=== PATIENT | male | born 1945 | race Caucasian/White ===

== ENCOUNTER 2022-01-21 14:20 | Outpatient (CLI) | payer MEDICARE, SELFPAY ==
[2022-01-21 15:03] LABS: Basophils Absolute Auto 0.1 K/mm3 (0.0-0.1); Basophils Percent Auto 0.8 % (0.2-1.2); Eosinophils Absolute Auto 0.4 K/mm3 (0-0.3); Eosinophils Percent Auto 4.6 % (0-4.4); Hematocrit 43.8 % (42.0-52.0); Hemoglobin 13.8 g/dL (14.0-18.0); Immature Granulocyte Absolute 0.03 K/mm3 (0.00-0.031); Immature Granulocyte Percent A 0.4 % (0-0.5); Lymphocytes Absolute Auto 2.27 K/mm3 (0.9-3.2); Mean Corpuscular HGB Conc 31.5 g/dl (32-36); Mean Corpuscular Hemoglobin 28.7 pg (26-34); Mean Corpuscular Volume 91.1 fl (80-100); Mean Platelet Volume 9.6 fl (7.4-10.4); Monocytes Absolute Auto 0.6 K/mm3 (0.1-0.6); Monocytes Percent Auto 7.7 % (2.6-8.5); Neutrophils Absolute Auto 4.5 K/mm3 (1.3-6.7); Neutrophils Percent Auto 57.5 % (45.5-73.1); Platelet Count Result 227 k/mm3 (150-375); Red Blood Count 4.81 M/mm3 (4.6-6.20); Red Cell Distribution Width 13.8 % (11.5-14.5); White Blood Count 7.8 K/mm3 (4.5-10.0)
[2022-01-21 15:08] LABS: INR 1.1; Prothrombin Time 13.6 Seconds (11.1-14.7)
[2022-01-21 15:09] LABS: Partial Thromboplastin Time 29.1 SECONDS (22.3-36.8)
== END 2022-01-21 14:21 | disposition home or self-care (01) ==
PROVIDERS: Visit Provider Surgery
DX: C34.90 Malignant neoplasm of unspecified part of unspecified bronchus or lung (principal); Z01.818 Encounter for other preprocedural examination
CPT/HCPCS: 36415; 85025; 85610; 85730

== ENCOUNTER 2022-01-23 02:07 | Day surgery (SDC) | payer MEDICARE, SELFPAY ==
--- NOTE | 2022-01-20 11:03 | PC.NURSE ---
Report to the Outpatient Waiting Room, entrance under the green pavilion located off [facility], at time 0830 on date __01/23/22 . OR Time: __1030 . - You and your visitor will be asked a series of questions to screen for COVID 19 for your protection. - Only one visitor is allowed at this time. - The patient visitor is requested to leave or wait in car when not with patient. - A mask is required within the hospital. Patients may have clear liquids (water, carbonated beverages, clear teas, apple juice) until 3 hours prior to surgery with a maximum of 20 ounces. - No food from midnight until time of surgery - Infants may have breast milk until 4 hours before surgery, infant formula 6 hours prior to surgery. - Children will be allowed to drink immediately following surgery. If applicable, please bring a bottle or sippy cup to assist with drinking. Juice, water, soda, and popsicles are readily available. For infants on formula, please bring formula the day of surgery. Pacifiers are allowed. Take the following medications with a SIP of water the morning of surgery: _METOPROLOL Medications to discontinue per physician NONE Date to take last dose Please no make-up, nail serbian, hairspray, perfume, deodorant, or body powder the day of surgery. No jewelry (including any body piercings) or valuables the day of surgery, leave them at home. Please take a shower or bath the night before, or the morning of, surgery with an antibacterial soap. Wear comfortable, loose fitting clothing. Children are encouraged to wear pajamas. - Jewelry must be removed prior to entering the operating room. Rings and piercings that are not removed may be cut off. - The hospital will not accept responsibility for valuables. - Please leave all valuables, including medications, at home the day of surgery. If you are going home after surgery, a licensed [employer] flatbed driver must drive you home. - NO public transportation without another adult. - We recommend that an adult stay with you for 24 hours following discharge. - We also recommend that you do not drive, make important decision, drink alcoholic beverages, or take any drugs that were not prescribed by your health care provider for at least 24 hours after your discharge time. For Pediatric surgeries, we recommend two adults accompany the child home (only one inside the building at this time). Follow any additional instructions given to you from your surgeon. If you or anyone in your household have experienced Covid symptoms in the past week, please notify your surgeon or the nurse liaison at the phone number below for possible testing. Telephone instructions given to PT'S DAUGHTER MEG and asked if any additional questions and then verbalized understanding. Patient advised to call surgeon office or pre surgery nurse liaison [phone] if any additional questions.
[2022-01-20 11:10] VITALS: BMI 23.4
--- NOTE | ~2022-01-23 | XR_ITS ---
EXAMINATION: XR fl guide central line place DATE: 01/23/2022 10:06 INDICATION: Port placement. TECHNIQUE: A single intraoperative fluoroscopic view of the chest was obtained. I was not present. Fl uoroscopy exposure time was 28 seconds. COMPARISON: Chest single view 01/23/2022 FINDINGS: The port tip is in the superior vena cava. Mediastinal wires are noted. IMPRESSION: 1. Port tip in the superior vena cava. Reviewed, dictated and finalized at location A.
--- NOTE | ~2022-01-23 | XR_ITS ---
EXAMINATION: XR chest port-a-cath/central DATE: 01/23/2022 10:22 INDICATION: Port placement. TECHNIQUE: A single frontal view of the chest was obtained. COMPARISON: None. FINDINGS: There is volume loss in right hemithorax. There are surgical changes in right lung with sta ple lines, surgical clips, and mild areas of scarring. No pleural effusion or pneumothorax. The heart size is normal. There is a left subclavian port with tip in superior vena cava. There is mild displa cement of the catheter between the clavicle and first rib. Median sternotomy wires are noted. IMPRESSION: 1. Port tip in superior vena cava. 2. Surgical changes and mild scarring at right lung. Reviewed, dictated and finalized at location A.
--- NOTE | 2022-01-23 08:53 | PM.IMHP ---
H&P: HPI History of Present Illness Date/Time: 01/23/22 08:53 Chief Complaint: R lung cancer Narrative: Pt is a 76 y/o M c recurrent R lung cancer. Pt had wedge resection x [address] in [address] Pt now c evidence of recurrence including mediastinal LN. Pt is going to undergo chemoradiation. Pt here for VAD placement for access. Pt denies any previous central venous catheterization. Review of Systems Review of Systems: All systems reviewed & are unremarkable except as noted in HPI and below [facility] Social History Social History Smoking packs per day: 0.5 Smoking cigarettes per day: 10.0 Years smoked: 40 Smoking pack-years: 20.00 Smoking status: Former smoker Tobacco type: cigarettes Smoking end date: 07/13/20 Alcohol intake: current Drinks per week: 1 Living arrangements: with family Spiritual care concerns: No Meds Home Medications and Allergies Home Medications Medication Instructions Recorded Confirmed Type aspirin 81 mg tablet,delayed 81 mg PO DAILY 01/20/22 01/20/22 History release (Adult Low Dose Aspirin) atorvastatin 40 mg tablet 1 tablet PO DAILY 01/20/22 01/20/22 History lisinopril 5 mg tablet 5 mg PO DAILY 01/20/22 01/20/22 History metoprolol succinate 25 mg 25 mg PO DAILY 01/20/22 01/20/22 History tablet,extended release 24 hr tamsulosin 0.4 mg capsule 0.4 mg PO DAILY 01/20/22 01/20/22 History Allergies Allergy/AdvReac Type Severity Reaction Status Date / Time No Known Allergies Allergy Verified 01/20/22 10:51 Exam Const: General: cooperative, healthy appearing and comfortable Chest: Chest palpation & inspection: normal inspection of the chest Resp: Auscultation: diminished lung sounds Cardio: Rate: regular rate Rhythm: regular rhythm GI: Inspection: normal to inspection Assessment and Plan Assessment and plan (1) Cancer of right lung: Code(s): C34.91 - Malignant neoplasm of unspecified part of right bronchus or lung Status: Acute Assessment and Plan: will place VAD for chemo access
--- NOTE | 2022-01-23 08:56 | WPDHPUPDATE1 ---
History and Physical Update Update Date/Time: 01/23/22 08:56 History and Physical has been reviewed, including an updated exam of the patient. There are NO changes in the patient's condition. Risks, benefits, and alternatives have been discussed and questions answered. Patient agrees to proceed with procedure.
[2022-01-23] MEDS: LACTATED RINGERS 1,000 ML 30 ML IV CONT (09:15)
[2022-01-23] MEDS: KETOROLAC 15 MG/ML VIAL (*BKC) IV PUSH (09:15)
--- NOTE | 2022-01-23 09:15 | P.PNAN_ITS ---
Anes - Initial Pre Proc Eval Procedure: Operation Date: 01/23/22 10:30 Proposed Procedures p Insertion Unique Cath - Niru Freeman MD Date/Time: 01/23/22 09:15 Surgeon: Niru Freeman MD Pre Op Diagnosis: Non Small Cell Ca of Right Lung Patient Data Age: 76 Gender: M Height: 1.73 m Weight: 69.85 kg Allergies Allergy/AdvReac Type Severity Reaction Status Date / Time No Known Allergies Allergy Verified 01/20/22 10:51 Home Medications Medication Instructions Recorded Confirmed Type aspirin 81 mg tablet,delayed 81 mg PO DAILY 01/20/22 01/20/22 History release (Adult Low Dose Aspirin) atorvastatin 40 mg tablet 1 tablet PO DAILY 01/20/22 01/20/22 History lisinopril 5 mg tablet 5 mg PO DAILY 01/20/22 01/20/22 History metoprolol succinate 25 mg 25 mg PO DAILY 01/20/22 01/20/22 History tablet,extended release 24 hr tamsulosin 0.4 mg capsule 0.4 mg PO DAILY 01/20/22 01/20/22 History Patient hx anesthesia problems: none Family hx anesthesia problems: none Results Review: All pre-operative results and documents have been reviewed as part of the pre- operative evaluation. [facility] Past Medical History Medical History CAD (coronary artery disease) Cancer of right lung Dementia Hyperlipidemia Hypertension Surgical History Surgical History Hx of CABG Social History Social History Smoking packs per day: 0.5 Smoking cigarettes per day: 10.0 Years smoked: 40 Smoking pack-years: 20.00 Smoking status: Former smoker Tobacco type: cigarettes Smoking end date: 07/13/20 Alcohol intake: current Drinks per week: 1 Living arrangements: with family Spiritual care concerns: No Anes - Eval Final PreProcedure Day of Procedure 01/23/22 09:15 Patient weight: normal Heart: regular rate and rhythm Lungs: decreased breath sounds Airway: Mallampati scale class III Neurological: other (alert) Last oral intake: >/= 8 hours ASA classification: IV Emergent: no Anesthetic plan: proceed Anesthesia type and monitoring: general GIVS and standard monitoring Results Review: All pre-operative results and documents have been reviewed as part of the pre- operative evaluation. Informed Consent: The patient's anesthetic plan and its attendant risks and benefits were discusse d with the patient/family/POA. Questions were solicited and answers provided to the satisfaction of the patient/family/POA.
[2022-01-23] MEDS: ceFAZolin 2 GM/D5W 50 ML 2 GM/50 ML BAG IVPB (09:37)
[2022-01-23] MEDS: BUPIVACAINE/EPINEPHRINE 0.25% 50 ML VIAL 10 ML INFILTRATE (09:49)
[2022-01-23 09:53] VITALS: BP 146/60; PULSE 74; RESP 14; TEMP 36.9; O2SAT 98
[2022-01-23] MEDS: HEPARIN SODIUM 5,000 UNITS/ML VIAL 5000 UNITS IRRIGATION (10:00)
[2022-01-23] MEDS: HEPARIN SODIUM, PORCINE 10,000 UNITS/10 ML VIAL 4000 UNITS IV PUSH (10:00)
--- NOTE | 2022-01-23 10:05 | W.PM.PROC2 ---
Procedure Note - Detailed Date of Procedure 01/23/22 Pre-op Diagnosis Non Small Cell Ca of Right Lung Post-op Diagnosis Same Procedure Performed placement of left subclavian venous access device under fluoroscopic guidance Surgeon Niru Freeman MD Anesthesia MAC and Local Indications 74 y/o F c recurrent, metastatic right lung cancer requiring chemotherapy Findings first stick L SCV Description of Procedure Patient was brought into the operating room and placed in the supine position. After adequate induction of mac anesthesia, the patient was prepped and draped in normal sterile fashion. Time-out was then done to verify the patient's identity, as well as the procedure being performed. I began by making a small incision in the left chest, I then gained access into the left subclavian vein with an 18 gauge needle. I then placed the guidewire into the vein and confirmed placement via fluoroscopic guidance. I then locally anesthetized the area in the left chest. I then enlarged the incision around the guidewire including making a subcutaneous pocket inferiorly to allow placement of the port itself. I then placed a dilating sheath over the guidewire into the left subclavian vein via sterile Seldinger technique. This was once again done and confirmed via fluoroscopic guidance. I then removed the dilator and the guidewire, now just leaving the sheath in the vein. I then fed the previously flushed catheter into the left subclavian vein under fluoroscopic guidance. At approximately 20 cm, the catheter was noted to be near the atrial caval junction. I then peeled away the sheath, now just leaving the catheter in the vein. I then was able to easily draw and flush from the catheter. The catheter was cut to fit and attached to the port itself. The port was placed into the previously made subcutaneous pocket and sutured in with 0 Ethibond suture. Final fluoroscopic view showed the termination of the catheter at the atrial caval junction with a nice smooth curvature back to the port itself. I was able to gain access to the port with a Crowder needle and was able to easily draw and flush from the port. I then flushed 4 cc of a final heparin flush into the port. The incision was closed with 3 0 Vicryl suture in the subcutaneous tissue and the skin was closed with 4 O Monocryl subcuticular suture. Dermabond was then placed on wound. The patient tolerated the procedure well and will be sent to the recovery room in stable condition. Implants L SCV VAD Estimated Blood Loss 5 Drains No Packing No Pathology None sent Complications No immediate complications Condition Stable Disposition PACU [facility] Billing Surgery - Charge Forward: Surgery Billing
[2022-01-23 10:09] VITALS: BP 111/80; PULSE 71; RESP 16; O2SAT 100
[2022-01-23 10:39] VITALS: BP 130/57; PULSE 68; RESP 18; O2SAT 99
[2022-01-23 11:09] VITALS: BP 127/76; PULSE 69; RESP 18
[2022-01-23 11:39] VITALS: BP 146/57; PULSE 67; RESP 18
== END 2022-01-23 11:47 | disposition home or self-care (01) ==
PROVIDERS: Visit Provider Surgery
PROC: (CPT 36561; principal; 2022-01-23 10:30)
DX: C34.91 Malignant neoplasm of unspecified part of right bronchus or lung (principal); Z87.891 Personal history of nicotine dependence; Z79.82 Long term (current) use of aspirin; C77.1 Secondary and unspecified malignant neoplasm of intrathoracic lymph nodes
CPT/HCPCS: 36561; 36415; 77001; 85025; 85610; 85730; C1788; J0690; J1644; J1885; J2704; J7030; J7120

== ENCOUNTER 2022-01-31 08:41 | Outpatient (CLI) | payer MEDICARE, SELFPAY ==
--- NOTE | ~2022-01-31 | MR_ITS ---
EXAMINATION: MR brain/brain stem wo/w con DATE: 01/31/2022 09:41 INDICATION: Recurrent lung cancer. TECHNIQUE: Magnetic resonance imaging (MRI) of the brain and brainstem was performed without and with 14 mL MultiHance intravenous contrast. COMPARISON: None. FINDINGS: There are old blood products in right side of the splenium of the corpus callosum. There is a tangle of prominent blood vessels in medial right frontoparietal region. There is no acute ischemi c infarct. There is no enhancing mass lesion. There are scattered areas of nonspecific increased T2-w eighted signal intensity in the cerebral white matter, which is within normal limits for the patient' s age. The ventricles are normal in size. The paranasal sinuses are clear. The orbits are normal. The re are small mastoid effusions. IMPRESSION: 1. No evidence of metastatic disease. 2. Tangle of prominent blood vessels in medial right frontoparietal region suspicious for an arteriov enous malformation. Head CTA is recommended. Reviewed, dictated and finalized at location A. IMPRESSION: 1. No evidence of metastatic disease. 2. Tangle of prominent blood vessels in medial right frontoparietal region susp icious for an arteriovenous malformation. Head CTA is recommended.
[2022-01-31 09:23] LABS: Estimated Glomerular Filt Rate > 60
== END 2022-01-31 08:42 | disposition home or self-care (01) ==
PROVIDERS: Visit Provider Radiology Radiation Oncology
DX: C34.90 Malignant neoplasm of unspecified part of unspecified bronchus or lung (principal); R41.0 Disorientation, unspecified
CPT/HCPCS: 70553; A9577

== ENCOUNTER 2022-03-25 10:16 | Emergency (ER) | payer MEDICARE, SELFPAY ==
[2022-03-25 10:23] VITALS: BP 114/64; PULSE 94; RESP 20; TEMP 36.6; O2SAT 98
--- NOTE | 2022-03-25 10:30 | ECG_ITS ---
Measurements Intervals [place] Rate: 95 P: 265 TN: 117 QRS: 244 QRSD: 129 T: 30 QT: 370 QTc: 466 Interpretive Statements ECTOPIC ATRIAL RHYTHM RIGHT AXIS DEVIATION RIGHT BUNDLE BRANCH BLOCK BASELINE WANDER- II, III, AVL, AVF ABNORMAL ECG NO PREVIOUS ECG AVAILABLE FOR COMPARISON Electronically Signed On 03-25-2022 12:10:25 CDT by Jose Raul Chua D.O.
--- NOTE | 2022-03-25 10:38 | ED.GENADULT ---
HPI - General Adult General Chief complaint: Dizziness Stated complaint: dizziness Time Seen by Provider: 03/25/22 10:29 History of Present Illness HPI narrative: 76-year-old man history of RUL adenocarcinoma who is receiving radiation and chemo every 3 weeks presents to the emergency room for evaluation of generalized weakness, hypotension and estimated weight loss of 6 pounds in the last week. Patient states he received his second dose of chemotherapy 5 days ago, and missed his most recent 2 radiation therapy visits due to generalized weakness and increased fatigue. States he is able to eat a normal diet without complications. Denies any increased shortness of breath or difficulty breathing. Related Data Home Medications Medication Instructions Recorded Confirmed aspirin 81 mg tablet,delayed 81 mg PO DAILY 01/20/22 03/25/22 release (Adult Low Dose Aspirin) atorvastatin 40 mg tablet 1 tablet PO DAILY 01/20/22 03/25/22 lisinopril 5 mg tablet 5 mg PO DAILY 01/20/22 03/25/22 metoprolol succinate 25 mg 25 mg PO DAILY 01/20/22 03/25/22 tablet,extended release 24 hr tamsulosin 0.4 mg capsule 0.4 mg PO DAILY 01/20/22 03/25/22 lidocaine-prilocaine 2.5 %-2.5 % See Rx Instructions .Route .COMPLEX 03/20/22 03/25/22 topical cream ondansetron HCl 8 mg tablet 8 mg PO Q8H PRN Nausea 03/20/22 03/25/22 Allergies Allergy/AdvReac Type Severity Reaction Status Date / Time No Known Allergies Allergy Verified 03/25/22 09:06 [facility] Past Medical History Medical History CAD (coronary artery disease) Cancer of right lung Dementia Hyperlipidemia Hypertension Surgical History Surgical History Hx of CABG Social History Social History Smoking packs per day: 0.5 Smoking cigarettes per day: 10.0 Years smoked: 40 Smoking pack-years: 20.00 Smoking status: Former smoker Tobacco type: cigarettes Smoking end date: 07/13/20 Alcohol intake: current Drinks per week: 1 Spiritual care concerns: No Exam Narrative: GENERAL: Ill-appearing HEAD: Normocephalic, atraumatic. EYES: Conjunctivae normal, PERRLA and EOMI. NECK: Supple. CHEST: Clear to auscultation. No respiratory distress. No wheezes rales or rhonchi. HEART: Regular rate and rhythm. No murmur heard. Normal peripheral pulses. ABDOMEN: Soft, nontender, nondistended, normal active bowel sounds. EXTREMITIES: Normal range of motion. No edema. No clubbing or cyanosis SKIN: Warm, dry, no rash. No noted wounds NEURO: No focal deficits. Alert and oriented x3. MAEW. CN's II-XI intact bilaterally PSYCH: Cooperative. Normal mood and affect. Discharge Plan Discharge Prescriptions: No Action ondansetron HCl 8 mg Tablet 8 mg PO Q8H PRN (Reason: Nausea) lidocaine-prilocaine 2.5-2.5 % Cream See Rx Instructions .ROUTE .COMPLEX Rx Instructions: Apply generously to port site 45 minutes prior to treatment atorvastatin 40 mg tablet 1 tablet PO DAILY metoprolol succinate 25 mg Tablet Extended Release 24 Hr 25 mg PO DAILY tamsulosin 0.4 mg Capsule 0.4 mg PO DAILY lisinopril 5 mg Tablet 5 mg PO DAILY aspirin [Adult Low Dose Aspirin] 81 mg Tablet,Delayed Release (Dr/Ec) 81 mg PO DAILY Follow-up/Referrals: UNKNOWN,DOCTOR [Primary Care Provider] -
[2022-03-25] MEDS: SODIUM CHLORIDE 0.9% IV 1,000 ML 250 ML IV CONT (11:30)
[2022-03-25 11:47] LABS: Basophils Percent Auto 0.2 % (0.2-1.2); Eosinophils Absolute Auto 0.1 K/mm3 (0-0.3); Eosinophils Percent Auto 1.1 % (0-4.4); Hematocrit 33.2 % (42.0-52.0); Hemoglobin 10.6 g/dL (14.0-18.0); Immature Granulocyte Absolute 0.04 K/mm3 (0.00-0.031); Immature Granulocyte Percent A 0.8 % (0-0.5); Lymphocytes Absolute Auto 0.35 K/mm3 (0.9-3.2); Lymphocytes Percent Auto 6.6 % (18.3-44.2); Mean Corpuscular HGB Conc 31.9 g/dl (32-36); Mean Corpuscular Volume 90.7 fl (80-100); Monocytes Absolute Auto 0.4 K/mm3 (0.1-0.6); Monocytes Percent Auto 7.1 % (2.6-8.5); Neutrophils Absolute Auto 4.5 K/mm3 (1.3-6.7); Neutrophils Percent Auto 84.2 % (45.5-73.1); Platelet Count Result 181 k/mm3 (150-375); Red Blood Count 3.66 M/mm3 (4.6-6.20); White Blood Count 5.3 K/mm3 (4.5-10.0)
[2022-03-25 11:48] LABS: Appearance Urine Slightly Cloudy (Clear); Bilirubin Urine 2+ (Negative); Blood Urine Negative (Negative); Glucose Urine UA Trace mg/dL (Negative); Ketones Urine 1+ mg/dL (Negative); Leukocyte Esterase Ur Negative LEU/UL (Negative); Nitrate Urine Negative (Negative); Protein Urine 1+ mg/dL (Negative); Specific Grav Ur 1.025 (1.001-1.035); pH Urine 5.5 (5.0-9.0)
[2022-03-25 11:51] LABS: Add Urine Microscopic? YES; Color Urine Dark Yellow (Yellow)
[2022-03-25 11:57] LABS: Lactic Acid Reflex 2.6 mmol/L (0.7-2.0)
[2022-03-25 11:58] LABS: Alanine Aminotransferase 22 U/L (6-50); Albumin Level 3.4 g/dL (3.5-5.1); Alkaline Phosphatase 94 U/L (38-126); Anion Gap 11 mmol/L (8-16); Aspartate Amino Transferase 22 U/L (17-59); Bilirubin,Total 0.8 mg/dL (0.2-1.3); Blood Urea Nitrogen 22 mg/dL (9-20); Calcium 7.9 mg/dL (8.4-10.2); Carbon Dioxide 27 mmol/L (22-30); Chloride 97 mmol/L (98-107); Estimated Glomerular Filt Rate > 60; Glucose 264 mg/dL (65-110); Lipase 36 U/L (23-300); Sodium 135 mmol/L (137-145)
[2022-03-25 12:00] VITALS: BP 112/45; PULSE 92; RESP 14; O2SAT 98
[2022-03-25 12:00] LABS: Mucus Urine Few /lpf; Squamous Epithelial Cell Urine Occasional /hpf (Few)
[2022-03-25 12:10] LABS: Troponin I < 0.012 ng/mL (0.000-0.034)
[2022-03-25 12:12] VITALS: PULSE 94
[2022-03-25] MEDS: SODIUM CHLORIDE 0.9% IV 1,000 ML 999 ML IV CONT (12:38)
[2022-03-25 13:00] VITALS: BP 100/59; PULSE 88; RESP 19; O2SAT 99
[2022-03-25 13:20] LABS: SARS-CoV-2 RNA PCR Negative
[2022-03-25 14:00] VITALS: BP 126/55; PULSE 99; RESP 14; O2SAT 94
[2022-03-25 14:44] LABS: Reflex Lactic Acid Yes or No Add Lactic
[2022-03-25 14:50] LABS: Lactic Acid Reflex 0.9 mmol/L (0.7-2.0)
[2022-03-25 15:06] VITALS: BP 144/58; PULSE 100; RESP 16; TEMP 36.3; O2SAT 97
== END 2022-03-25 15:09 ==
PROVIDERS: Emergency Provider Nurse Practitioner Family
DX: C34.11 Malignant neoplasm of upper lobe, right bronchus or lung (principal); I25.10 Atherosclerotic heart disease of native coronary artery without angina pectoris; F03.90 Unspecified dementia, unspecified severity, without behavioral disturbance, psychotic disturbance, mood disturbance, and anxiety; I10 Essential (primary) hypertension; E78.5 Hyperlipidemia, unspecified; Z87.891 Personal history of nicotine dependence; Z79.82 Long term (current) use of aspirin; Z79.899 Other long term (current) drug therapy; Z20.822 Contact with and (suspected) exposure to COVID-19
CPT/HCPCS: 36415; 80053; 81001; 83605; 83690; 84484; 85025; 93005; 96360; 96361; 99212; 99284; C9803; G0463; J7030; U0003; U0005

== ENCOUNTER 2022-04-11 17:27 | Inpatient (IN) | payer MEDICARE, SELFPAY ==
[2022-04-11] VITALS (9 sets, daily range): BP systolic 106–143; BP diastolic 54–92; PULSE 79–94; RESP 16–18; TEMP 36.3–36.8; O2SAT 94–100; BMI 22.1
--- NOTE | ~2022-04-11 | XR_ITS ---
EXAMINATION: XR knee LT 2V DATE: 04/11/2022 18:46 INDICATION: Left knee injury. TECHNIQUE: 2 views of left knee were obtained. COMPARISON: None. FINDINGS: Bone alignment is normal. No fracture. There is mild tricompartmental osteoarthritis. No kn ee joint effusion. There is a surgical clip in the posterior soft tissues. IMPRESSION: 1. Mild left knee osteoarthritis. Reviewed, dictated and finalized at location A.
--- NOTE | ~2022-04-11 | CT_ITS ---
EXAMINATION: CT cervical spine wo con DATE: 04/11/2022 21:07 INDICATION: Neck injury. Fall. TECHNIQUE: Computed tomography (CT) of the cervical spine was performed without intravenous contrast. Automated exposure control and iterative reconstruction technique were employed. The dose-length pro duct was 259.96 mGy-cm. COMPARISON: None FINDINGS: There is mild emphysema. There is a small right pleural effusion. There is 7 degrees levocu rvature of cervical spine. There is 2 mm retrolisthesis of C4 on C5. Vertebral body heights are herminio l. There is severely decreased disc height from C4-C5 through C6-C7. The following disc levels are sp ecifically discussed: C2-C3: There is mild bilateral uncovertebral joint osteoarthritis. There is moderate right and severe left facet joint osteoarthritis. There is mild right and moderate left neural foraminal stenosis. Th ere is no central canal stenosis. C3-C4: There is mild bilateral uncovertebral joint osteoarthritis. There is severe right and mild lef t facet joint osteoarthritis. There is mild bilateral neural foraminal stenosis. There is mild centra l canal stenosis. C4-C5: There is moderate and severe left uncovertebral joint osteoarthritis. There is moderate bilate ral facet joint osteoarthritis. There is mild right and moderate left neural foraminal stenosis. Ther e is mild central canal stenosis. C5-C6: There is mild right and severe left uncovertebral joint osteoarthritis. There is severe bilate ral facet joint osteoarthritis. There is mild right and moderate left neural foraminal stenosis. Ther e is mild central canal stenosis. C6-C7: There is severe bilateral uncovertebral joint osteoarthritis. There is mild bilateral facet radha int osteoarthritis. There is moderate bilateral neural foraminal stenosis. There is mild central jacque l stenosis. C7-T1: There is no uncovertebral joint osteoarthritis. There is mild right and severe left facet join t osteoarthritis. There is mild left neural foraminal stenosis. There is no central canal stenosis. IMPRESSION: 1. No fracture. 2. Severe cervical spondylosis. Reviewed, dictated and finalized at location A.
--- NOTE | ~2022-04-11 | XR_ITS ---
EXAMINATION: XR hip LT 2V w AP pelvis DATE: 04/11/2022 18:46 INDICATION: Left hip injury. TECHNIQUE: An anteroposterior pelvis and 2 views of left hip were obtained. COMPARISON: None. FINDINGS: There is 8 degrees levocurvature of lumbar spine. There is severe lumbar spondylosis. There is a subcapital fracture of left femoral neck. The distal fracture fragment demonstrates 11 mm short ening and 6 mm lateral displacement. There is mild osteoarthritis of the hips. IMPRESSION: 1. Subcapital fracture of left femoral neck. 2. Mild osteoarthritis of the hips. Reviewed, dictated and finalized at location A.
--- NOTE | ~2022-04-11 | XR_ITS ---
EXAMINATION: XR chest 1V portable DATE: 04/15/2022 13:26 INDICATION: Hypoxia. Leukocytosis. TECHNIQUE: frontal view of the chest was obtained. COMPARISON: Chest radiograph dated 04/11/2022 FINDINGS: Volume loss in the right hemithorax with suture lines in the right mid and upper lung zone suggesting prior partial pneumonectomy. Opacity at the lateral aspect of the right mid to lower lung zone and o verlying the right apex consistent with a small likely at least partially loculated right pleural eff usion. Opacities in the right lower lung zone could represent associated atelectasis or pneumonia. Mo re linear atelectasis/scarring in the right upper lung zone. Increased lucency in the upper lung zone s corresponding to emphysema which is better appreciated on recent prior cervical spine CT dated 04/11. Mild increased interstitial pattern in the left lower lung zone suspicious for mild pulmonary ed martina. No pneumothorax or left-sided pleural effusion. Heart size is within normal limits for AP techni que. Median sternotomy wires and mediastinal surgical clips are seen, likely from prior coronary lisa ry bypass grafting. Left subclavian central venous port catheter tip at the cephalad superior vena ca va. IMPRESSION: 1. Persistent small right pleural effusion. 2. Opacities in the right mid to lower lung zone which could represent atelectasis or pneumonia. 3. Mild interstitial opacities the left lower lung zone consistent with mild pulmonary edema with dif ferential also including pneumonia. 4. Emphysema with changes likely prior partial right pneumonectomy. Reviewed, dictated and finalized at location A. IMPRESSION: 1. Persistent small right pleural effusion. 2. Opacities in the right mid to lower lung zone which could represent atelecta sis or pneumonia. 3. Mild interstitial opacities the left lower lung zone consistent with mild pu lmonary edema with differential also including pneumonia. 4. Emphysema with changes likely prior partial right pneumonectomy.
--- NOTE | ~2022-04-11 | CT_ITS ---
EXAMINATION: CT brain wo con DATE: 04/11/2022 21:00 INDICATION: Head injury. TECHNIQUE: Computed tomography (CT) of the head was performed without intravenous contrast. The mA wa s adjusted according to patient size. Iterative reconstruction technique was employed. The dose-lengt h product was 605.33 mGy-cm. COMPARISON: Brain MRI 01/31/2022 FINDINGS: There is no intracranial hemorrhage, acute infarction, or abnormal intracranial mass lesion . The ventricles are normal in size. There is mild mucosal thickening in the paranasal sinuses. There is a small right mastoid effusion. IMPRESSION: 1. Normal brain. Reviewed, dictated and finalized at location A. IMPRESSION: 1. Normal brain.
--- NOTE | ~2022-04-11 | XR_ITS ---
EXAMINATION: XR chest 1V DATE: 04/11/2022 18:46 INDICATION: Fall. TECHNIQUE: A single frontal view of the chest was obtained on 2 radiographs. COMPARISON: Chest single view 01/23/2022 FINDINGS: There are staple lines in right lung. There is a small right pleural effusion. There are ai rspace opacities in all right lung zones. No pneumothorax. The heart size is normal. Median sternotom y wires are noted. There is a left subclavian port with tip in superior vena cava. IMPRESSION: 1. Worsened small right pleural effusion. 2. Airspace opacities in right lung, consistent with atelectasis/scarring versus pneumonia. Reviewed, dictated and finalized at location A. IMPRESSION: 1. Worsened small right pleural effusion. 2. Airspace opacities in right lung, consistent with atelectasis/scarring versu s pneumonia.
--- NOTE | ~2022-04-11 | XR_ITS ---
EXAMINATION: XR surgery orthopedic DATE: 04/13/2022 08:54 INDICATION: Excessive of a subcapital fracture left femoral neck. TECHNIQUE: 3 fluoroscopic images of the left hip were obtained during procedure performed by Dr. Dina taylor. Radiologist was not present for the imaging or procedure. The amount of fluoroscopy time used du ring this procedure was 0.9 minutes. COMPARISON: None. FINDINGS: Interval reduction and fixation of a previous displaced subcapital fracture of the proximal left femu r which is now in near-anatomic alignment. The fracture is fixed with 3 cannulated lag screws. No new fractures identified. Mild osteoarthritis at the left hip. IMPRESSION: 1. Reduction to near-anatomic alignment and leg screw fixation of a subcapital fracture of the proxim al left femur. Reviewed, dictated and finalized at location A. IMPRESSION: 1. Reduction to near-anatomic alignment and leg screw fixation of a subcapital fracture of the proximal left femur.
--- NOTE | 2022-04-11 19:39 | ECG_ITS ---
Measurements Intervals [place] Rate: 83 P: 263 DC: 115 QRS: 248 QRSD: 136 T: 13 QT: 432 QTc: 509 Interpretive Statements ECTOPIC ATRIAL RHYTHM VENTRICULAR PREMATURE COMPLEX RIGHT AXIS DEVIATION RIGHT BUNDLE BRANCH BLOCK BASELINE ARTIFACT- II ABNORMAL ECG COMPARED TO ECG 03/25/2022 11:35:49 NO SIGNIFICANT CHANGES Electronically Signed On 04-11-2022 21:49:27 CDT by Jose Raul Chua D.O.
[2022-04-11 19:53] LABS: Basophils Percent Auto 0.2 % (0.2-1.2); Hemoglobin 9.2 g/dL (14.0-18.0); Immature Granulocyte Absolute 0.08 K/mm3 (0.00-0.031); Immature Granulocyte Percent A 0.8 % (0-0.5); Lymphocytes Absolute Auto 0.92 K/mm3 (0.9-3.2); Lymphocytes Percent Auto 8.7 % (18.3-44.2); Mean Corpuscular HGB Conc 31.7 g/dl (32-36); Mean Corpuscular Volume 88.4 fl (80-100); Mean Platelet Volume 9.8 fl (7.4-10.4); Monocytes Absolute Auto 0.6 K/mm3 (0.1-0.6); Monocytes Percent Auto 5.6 % (2.6-8.5); Neutrophils Percent Auto 84.7 % (45.5-73.1); Platelet Count Result 361 k/mm3 (150-375); Red Blood Count 3.28 M/mm3 (4.6-6.20); Red Cell Distribution Width 14.6 % (11.5-14.5); White Blood Count 10.6 K/mm3 (4.5-10.0)
[2022-04-11 20:08] LABS: Alanine Aminotransferase 59 U/L (6-50); Alkaline Phosphatase 151 U/L (38-126); Anion Gap 11 mmol/L (8-16); Aspartate Amino Transferase 66 U/L (17-59); Bilirubin,Total 0.6 mg/dL (0.2-1.3); Blood Urea Nitrogen 24 mg/dL (9-20); Calcium 8.2 mg/dL (8.4-10.2); Carbon Dioxide 30 mmol/L (22-30); Chloride 95 mmol/L (98-107); Estimated CRCL calculation 36 ml/min; Estimated Glomerular Filt Rate 49; Glucose 261 mg/dL (65-110); Potassium 3.3 mmol/L (3.4-5.0); Sodium 136 mmol/L (137-145)
[2022-04-11 20:14] LABS: INR 1.4
[2022-04-11 20:16] LABS: Partial Thromboplastin Time 31.6 SECONDS (22.3-36.8)
[2022-04-11 20:19] LABS: Alveolar/Arterial O2 Gradient 89.5 mmHg; Base Excess ABG 4.9 mEq/l (+/-2.0); Carboxyhemoglobin 0.3 % THb (0-2.0); Fractional Inspired Oxygen 32 %; HCO3 ABG 27.4 mEq/l (22.0-26.0); Methemoglobin ABG 0.1 %THb (0-1.5); Oxygen Content ABG 12.7 %vol (16.0-22.0); Oxygen Saturation ABG 98.3 % (95.0-100.0); PCO2 ABG 32.2 mmHg (35.0-45.0); PO2 FiO2 Ratio Arterial Blood 3.16 %; Reduced Hemoglobin 2.6 %THb (0-5.0); Total Hemoglobin 9.2 g/dL (12.0-18.0)
--- NOTE | 2022-04-11 20:21 | ED.FALL ---
HPI - Fall General Chief Complaint: Fall Stated Complaint: GLF with knee pain Time Seen by Provider: 04/11/22 18:57 Source: patient and RN notes reviewed Mode of arrival: EMS Limitations: dementia History of Present Illness HPI Narrative: This is a 76 year old male with history of dementia who pesents from memory care for evaluation of left knee pain s/p fall. Nursing reports patient has fallen twice today. It is unclear if his falls were witnessed . It is reported that patient was not complaining of any pain after the first fall. Unable to provide history. MD complaint: fall Related Data Home Medications Medication Instructions Recorded Confirmed aspirin 81 mg tablet,delayed 81 mg PO DAILY 01/20/22 03/25/22 release (Adult Low Dose Aspirin) atorvastatin 40 mg tablet 1 tablet PO DAILY 01/20/22 03/25/22 lisinopril 5 mg tablet 5 mg PO DAILY 01/20/22 03/25/22 metoprolol succinate 25 mg 25 mg PO DAILY 01/20/22 03/25/22 tablet,extended release 24 hr tamsulosin 0.4 mg capsule 0.4 mg PO DAILY 01/20/22 03/25/22 lidocaine-prilocaine 2.5 %-2.5 % See Rx Instructions .Route .COMPLEX 03/20/22 03/25/22 topical cream ondansetron HCl 8 mg tablet 8 mg PO Q8H PRN Nausea 03/20/22 03/25/22 Allergies Allergy/AdvReac Type Severity Reaction Status Date / Time No Known Allergies Allergy Verified 03/25/22 09:06 Review of Systems Review of Systems: ROS unobtainable: Yes unobtainable due to mental status PMFSH Past Medical History Medical History CAD (coronary artery disease) Cancer of right lung Dementia Hyperlipidemia Hypertension Surgical History Surgical History Hx of CABG Social History Social History Smoking packs per day: 0.5 Smoking cigarettes per day: 10.0 Years smoked: 40 Smoking pack-years: 20.00 Smoking status: Former smoker Tobacco type: cigarettes Smoking end date: 07/13/20 Alcohol intake: current Drinks per week: 1 Spiritual care concerns: No Exam Const: General: alert and confusion Nutritional Appearance: thin Other: patient is restless and moving around in bed HENMT: Face and sinus: normal facial exam Throat: posterior oropharynx normal Eyes: Pupils: Equal, round and reactive pupils present EOM: EOMs intact bilaterally Chest: Chest palpation & inspection: normal inspection of the chest Resp: Effort & Inspection: labored and tachypneic Auscultation: clear to auscultation bilaterally Cardio: Rate: regular rate Rhythm: regular rhythm Heart sounds: no murmurs GI: GI Palp: Yes Soft to palpation, No Tenderness to palpation present (GI) and No Guarding due to palpation present (GI) Auscultation: normal bowel sounds Skin: General skin exam: normal color Rashes: no rashes Wounds: no wounds Neuro: General: moves all extremities and CN's II-XI intact bilaterally Extrem: Other: moving all extremities, no deformities, difficult to tell where pain is located. no bruising noted to extremities, pulses presented Psych: Affect: Anxious affect present Other: restless Course Consultations Consultation #1: Dr. Frye agrees to consult regarding hip fracture. Dr. onofre accepts to hospitalist service. She okay with IV potassium as patient unlike to take Date: 04/11/22 Time: 22:00 Vital Signs Vital signs: Vital Signs Temperature 97.6 F 04/11/22 17:28 Pulse Rate 80 04/11/22 17:28 Respiratory Rate 16 04/11/22 17:28 Blood Pressure 143/54 H 04/11/22 17:28 Pulse Oximetry 94 04/11/22 17:28 Temperature 98.3 F 04/11/22 22:09 Pulse Rate 79 04/11/22 22:09 Respiratory Rate 16 04/11/22 22:09 Blood Pressure 116/78 04/11/22 22:09 Pulse Oximetry 98 04/11/22 22:09 Oxygen Delivery Nasal Cannula 04/11/22 18:00 Oxygen Flow Rate 2 04/11/22 18:00 MDM
[2022-04-11 20:23] LABS: Device NASAL CANNULA; Modified Allen's Test Pass; Site Drawn RIGHT RADIAL; pH ABG 7.547 (7.350-7.450)
[2022-04-11] MEDS: LORazepam INJ (*CRX) 2 MG/ML VIAL 0.5 MG IV PUSH (20:41)
[2022-04-11 20:57] LABS: Appearance Urine Slightly Cloudy (Clear); Bilirubin Urine 1+ (Negative); Blood Urine 2+ (Negative); Color Urine Yellow (Yellow); Glucose Urine UA Trace mg/dL (Negative); Ketones Urine 1+ mg/dL (Negative); Leukocyte Esterase Ur Negative LEU/UL (Negative); Nitrate Urine Negative (Negative); Protein Urine 2+ mg/dL (Negative); Specific Grav Ur 1.025 (1.001-1.035); pH Urine 5.5 (5.0-9.0)
[2022-04-11 21:06] LABS: Amorphous Sediment Urine Few; Bacteria Urine Trace /hpf; Mucus Urine Rare /lpf; RBC Urine >75 /hpf (0-2); Squamous Epithelial Cell Urine Occasional /hpf (Few)
[2022-04-11 21:10] LABS: Add Urine Microscopic? YES
[2022-04-11] MEDS: LACTATED RINGERS 1,000 ML 999 ML IV CONT (22:34)
[2022-04-11] MEDS: KCL 20 MEQ/SW 100 ML 100 ML 50 MEQ IVPB (23:12)
--- NOTE | 2022-04-11 23:14 | PM.IMHP ---
H&P: HPI History of Present Illness Date/Time: 04/11/22 22:30 Chief Complaint: Fall with the knee pain Narrative: 76-year-old male past medical history of dementia, hypertension, right lung cancer, coronary disease status post CABG who presented to the ER from [facility] care facility after having fall. Patient had 2 ground level falls today. After 1st follow-up patient had no complaints. If her 2nd fall patient was complaining of left knee pain and was unable to fully straighten the left leg. Patient was brought to the ER for evaluation where he was found to have a left subcapital femoral neck fracture. The patient was agitated and restless in the ER and received a dose of Ativan. At the time of my evaluation the patient was sedated and minimally responsive and was not following commands. Patient was unable to provide much history due to his memory deficits and language barrier. The patient's 1st language [place]ian. Nursing staff reports to me that while patient's sleep his oxygen saturations do drop to 86%. No obvious apnea noted. Gómez catheter was placed in the ER the patient has dark yellow urine present. Patient's blood pressures and vitals are stable. Review of Systems Review of Systems: Unobtainable due to patient's mentation. [facility] Past Medical History Medical History (Updated 04/12/22 @ 01:27 by Jane Mcguire DO) BPH (benign prostatic hyperplasia) CAD (coronary artery disease) Cancer of right lung Chronic anemia Dementia Hyperlipidemia Hypertension Surgical History Surgical History Hx of CABG Family History Family History Other Unknown family medical history Social History Social History (Updated 04/12/22 @ 01:22 by Jane Mcguire DO) Social History: Code status: Full code with selective treatment measures (per IDPA advanced directive form on patient's chart) Smoking packs per day: 0.5 Smoking cigarettes per day: 10.0 Years smoked: 40 Smoking pack-years: 20.00 Smoking status: Former smoker Tobacco type: cigarettes Smoking end date: 07/13/20 Alcohol intake: former Drinks per week: 1 Substance use: unknown Additional living arrangements comments: Memory Care Additional occupation/education comments: Retired from the [employer] business. Spiritual care concerns: No Meds Home Medications and Allergies Home Medications Medication Instructions Recorded Confirmed Type aspirin 81 mg tablet,delayed 81 mg PO DAILY 01/20/22 03/25/22 History release (Adult Low Dose Aspirin) lisinopril 5 mg tablet 5 mg PO DAILY 01/20/22 03/25/22 History metoprolol succinate 25 mg 25 mg PO DAILY 01/20/22 03/25/22 History tablet,extended release 24 hr tamsulosin 0.4 mg capsule 0.4 mg PO DAILY 01/20/22 03/25/22 History Allergies Allergy/AdvReac Type Severity Reaction Status Date / Time No Known Allergies Allergy Verified 04/11/22 23:35 Vital Signs Vital Signs - 24 hr 04/11/22 17:28 04/11/22 19:20 04/11/22 20:00 Temperature 97.6 F 98.1 F Pulse Rate 80 93 94 Respiratory Rate 16 18 16 Blood Pressure 143/54 H 106/92 H 136/68 Pulse Oximetry 94 98 98 Oxygen Delivery Oxygen Flow Rate 04/11/22 21:03 04/11/22 18:00 04/11/22 22:09 Temperature 97.3 F L 98.3 F Pulse Rate 88 79 Respiratory Rate 16 16 Blood Pressure 132/70 116/78 Pulse Oximetry 98 97 98 Oxygen Delivery Nasal Cannula Oxygen Flow Rate 2 Exam Narrative: Weight 80 kg BMI 28.5 Const: Other: Thin body habitus, elderly, appears older than stated age, mildly ill-appearing HENMT: Other: Mucous membranes are dry, edentulous in the upper jaw, multiple missing teeth in the lower jaw remainder of dentition are in poor condition Eyes: Other: Pupils are equal and reactive, no scleral icterus, positive conjunctival pallor, matting of the right eyelid Neck: Other:
--- NOTE | 2022-04-11 23:44 | ADMGEN ---
This patient, Devan Bar, was admitted to 2 Medical Room [facility] @2340. Patient/family oriented to hospital policies and general routines including ID bracelet, bed and alarms, visiting hours, pain management, procedures, bathroom and other care routines, personal items, smoking policy, room service/diet, and visiting hours. Information on how to activate the Rapid Response Team has been discussed. Patient/Family are encouraged to report perceived risks to care and to ask questions if they do not understand what they are told or what they should do.
[2022-04-12] VITALS (18 sets, daily range): BP systolic 117–146; BP diastolic 53–83; PULSE 66–95; RESP 16–24; TEMP 36.6–37.2; O2SAT 90–100
[2022-04-12] MEDS: SODIUM CHLORIDE 0.9% IV 1,000 ML 125 ML IV CONT ×3 (00:04→18:51)
[2022-04-12 05:20] LABS: Basophils Percent Auto 0.1 % (0.2-1.2); Eosinophils Percent Auto 0.2 % (0-4.4); Hematocrit 25.7 % (42.0-52.0); Hemoglobin 8.1 g/dL (14.0-18.0); Immature Granulocyte Absolute 0.08 K/mm3 (0.00-0.031); Immature Granulocyte Percent A 0.9 % (0-0.5); Lymphocytes Absolute Auto 0.71 K/mm3 (0.9-3.2); Lymphocytes Percent Auto 8.4 % (18.3-44.2); Mean Corpuscular HGB Conc 31.5 g/dl (32-36); Mean Corpuscular Hemoglobin 27.7 pg (26-34); Mean Platelet Volume 10.2 fl (7.4-10.4); Monocytes Absolute Auto 0.6 K/mm3 (0.1-0.6); Monocytes Percent Auto 6.5 % (2.6-8.5); Neutrophils Absolute Auto 7.1 K/mm3 (1.3-6.7); Neutrophils Percent Auto 83.9 % (45.5-73.1); Platelet Count Result 323 k/mm3 (150-375); Red Blood Count 2.92 M/mm3 (4.6-6.20); Red Cell Distribution Width 14.5 % (11.5-14.5); White Blood Count 8.5 K/mm3 (4.5-10.0)
[2022-04-12 06:02] LABS: Alanine Aminotransferase 48 U/L (6-50); Albumin Level 2.6 g/dL (3.5-5.1); Alkaline Phosphatase 124 U/L (38-126); Anion Gap 4 mmol/L (8-16); Aspartate Amino Transferase 47 U/L (17-59); Bilirubin,Total 0.5 mg/dL (0.2-1.3); Blood Urea Nitrogen 20 mg/dL (9-20); Calcium 7.8 mg/dL (8.4-10.2); Carbon Dioxide 32 mmol/L (22-30); Chloride 98 mmol/L (98-107); Estimated CRCL calculation 45 ml/min; Estimated Glomerular Filt Rate > 60; Glucose 225 mg/dL (65-110); Potassium 3.5 mmol/L (3.4-5.0); Sodium 134 mmol/L (137-145)
[2022-04-12 07:12] LABS: Hemoglobin A1C 9.6 % (<5.7)
[2022-04-12 08:35] LABS: Glucose Point of Care 191 mg/dl (65-105)
--- NOTE | 2022-04-12 09:00 | PM.IMPN ---
Progress Note: A&P Assessment and Plan (1) Closed subcapital fracture of neck of left femur: Code(s): S72.012A - Unspecified intracapsular fracture of left femur, initial encounter for closed fracture Status: Acute Assessment and Plan: Hip/Pel xray subcapital fracture of the left femoral neck, mild osteoarthritis of the hips Ortho consulted NPO for now Urinary catheter for decreased mobility Pain medications Tylenol and morphine for now Antiemetics Zofran DVT prophylaxis on hold for now Cardiology consulted and Echo ordered for Cardiac clearance EKG appear stable and unchanged since last EKG Some wheezing heard, breathing treatments ordered Post op care per ortho (2) Hypokalemia: Code(s): E87.6 - Hypokalemia Status: Acute Assessment and Plan: Current K is 3.5 3.3 upon admission Supplement as indicated Trend labs (3) Dementia: Qualifiers: Dementia behavioral or psychological symptom: with agitation Dementia severity: moderate Dementia type: unspecified type Qualified Code(s): F03.B11 - Unspecified dementia, moderate, with agitation Code(s): F03.90 - Unspecified dementia, unspecified severity, without behavioral disturbance, psychotic disturbance, mood disturbance, and anxiety Status: Acute Assessment and Plan: No current home medications Trend behavior and mood Monitor for signs of delirium Keep a strict day/night schedule Light, curtains, and reorietation when appropiate to maintain day/night cycle Avoid sedative medication (4) HERNANDEZ (acute kidney injury): Code(s): N17.9 - Acute kidney failure, unspecified Status: Acute Assessment and Plan: BUN/Cr elevated at admission 24/1.40 IV fluids NS at 125ml/hr Reported dry mucous membranes Seems to be related to dehydration BUN/Cr normalizing at 20/1.10 Baseline appears to be 1.0-1.2 Continue to trend labs (5) Hypertension: Code(s): I10 - Essential (primary) hypertension Status: Acute Assessment and Plan: Current BP is 128/65 Continue home lisinopril and metoprolol Trend BP Adjust therapy as indicated (6) Fall: Code(s): W19.XXXA - Unspecified fall, initial encounter Status: Acute Assessment and Plan: Ground level fall x 2 at the [facility] Head CT negative for any intracranial findings Hip fracture noted Fall precautions PT/OT as appropriate (7) Diabetes: Code(s): E11.9 - Type 2 diabetes mellitus without complications Status: Acute Assessment and Plan: Appears to be a new onset A1c 9.6, glucose 225 Accu cheks Q6H while NPO, change to AC/HS when able to eat Trend glucose ISS Hypoglycemia protocol Adjust therapy as indicated (8) Anemia: Code(s): D64.9 - Anemia, unspecified Status: Acute Assessment and Plan: H/H 8.08/06.7 currently Anemia labs in the am Unknown source at this time Supplement as indicated Trend H/H Transfuse if Hgb <7.0 Time Spent With Patient Time: 25 minutes collaboration with ortho and family discussion Time with patient: Greater than 35 minutes Subjective Date/time seen: 04/12/22 09:00 Interval history: 04/12/22899 Patient seems to be pretty out of it right at the moment. he denies any current pain. He did respond to some of my questions. telemetry does appear to be stable does show acute few beats of ectopy however nothing sustained. Patient appears to be comfortable at this time lying in bed. Gómez is draining a clear yellow urine. Anesthesia is requesting a cardiac workup. cardiology has been consulted echo has been ordered EKG appears to be stable. Labs appear to be stable as well H&H 8.08/06.7. Renal function back to normal. 04/11/22? 22:30 76-year-old male past medical history of dementia, hypertension
--- NOTE | 2022-04-12 09:00 | P.PNIM_ITS ---
Progress Note: A&P Assessment and Plan (1) Closed subcapital fracture of neck of left femur: Code(s): S72.012A - Unspecified intracapsular fracture of left femur, initial encounter for closed fracture Status: Acute Assessment and Plan: * Hip/Pel xray subcapital fracture of the left femoral neck, mild osteoarthritis of the hips * Ortho consulted * NPO for now * Urinary catheter for decreased mobility * Pain medications Tylenol and morphine for now * Antiemetics Zofran * DVT prophylaxis on hold for now * Cardiology consulted and Echo ordered for Cardiac clearance * EKG appear stable and unchanged since last EKG * Some wheezing heard, breathing treatments ordered * Post op care per ortho (2) Hypokalemia: Code(s): E87.6 - Hypokalemia Status: Acute Assessment and Plan: * Current K is 3.5 * 3.3 upon admission * Supplement as indicated * Trend labs (3) Dementia: Qualifiers: Dementia behavioral or psychological symptom: with agitation Dementia severity: moderate Dementia type: unspecified type Qualified Code(s): F03.B11 - Unspecified dementia, moderate, with agitation Code(s): F03.90 - Unspecified dementia, unspecified severity, without behavioral disturbance, psychotic disturbance, mood disturbance, and anxiety Status: Acute Assessment and Plan: * No current home medications * Trend behavior and mood * Monitor for signs of delirium * Keep a strict day/night schedule * Light, curtains, and reorietation when appropiate to maintain day/night cycle * Avoid sedative medication (4) HERNANDEZ (acute kidney injury): Code(s): N17.9 - Acute kidney failure, unspecified Status: Acute Assessment and Plan: * BUN/Cr elevated at admission 24/1.40 * IV fluids NS at 125ml/hr * Reported dry mucous membranes * Seems to be related to dehydration * BUN/Cr normalizing at 20/1.10 * Baseline appears to be 1.0-1.2 * Continue to trend labs (5) Hypertension: Code(s): I10 - Essential (primary) hypertension Status: Acute Assessment and Plan: * Current BP is 128/65 * Continue home lisinopril and metoprolol * Trend BP * Adjust therapy as indicated (6) Fall: Code(s): W19.XXXA - Unspecified fall, initial encounter Status: Acute Assessment and Plan: * Ground level fall x 2 at the [facility] * Head CT negative for any intracranial findings * Hip fracture noted * Fall precautions * PT/OT as appropriate (7) Diabetes: Code(s): E11.9 - Type 2 diabetes mellitus without complications Status: Acute Assessment and Plan: * Appears to be a new onset * A1c 9.6, glucose 225 * Accu cheks Q6H while NPO, change to AC/HS when able to eat * Trend glucose * ISS * Hypoglycemia protocol * Adjust therapy as indicated (8) Anemia: Code(s): D64.9 - Anemia, unspecified Status: Acute Assessment and Plan: * H/H 8.1/25.7 currently * Anemia labs in the am * Unknown source at this time * Supplement as indicated * Trend H/H * Transfuse if Hgb <7.0 Time Spent With Patient Time: 25 minutes collaboration with ortho and family discussion Time with patient: Greater than 35 minutes Subjective Date/time seen: 04/12/22 09:00 I
[2022-04-12] MEDS: METOPROLOL SUCCINATE EXT REL 25 MG TABCR PO (09:02)
[2022-04-12] MEDS: ALBUTEROL SULFATE NEB 2.5 MG/3 ML INH INHALATION ×3 (09:04→20:13)
[2022-04-12] MEDS: IPRATROPIUM BR 0.02% INH SOLN 0.5 MG/2.5 ML VIAL INHALATION ×3 (09:04→20:13)
[2022-04-12 09:31] LABS: Magnesium 1.9 mg/dL (1.6-2.3)
--- NOTE | 2022-04-12 10:21 | PM.CNOR ---
Assessment and Plan Assessment and plan (1) Closed subcapital fracture of neck of left femur: Qualifiers: Encounter type: initial encounter Qualified Code(s): S72.012A - Unspecified intracapsular fracture of left femur, initial encounter for closed fracture Code(s): S72.012A - Unspecified intracapsular fracture of left femur, initial encounter for closed fracture Status: Acute Assessment and Plan: New patient evaluation for chief complaint left hip fracture. History, physical exam and radiographs reviewed with the family. Discussed the condition, nature, etiology and course of natural history with the family. Treatment options including surgical and nonoperative treatment were reviewed. Risks and benefits of each as well as alternatives reviewed. The daughters questions were answered. Conservative treatment ice, pain control, DVT prophylaxis. Family would like to consider surgery to help control pain and allow for care of the patient as well as possible return to activity and ambulation. Patient would need to be ambulatory to return to the [facility]. Discussed with Anesthesiology. Despite DNR status and medical comorbidities would like to request Cardiology consultation to try and assess amount of risk for operative treatment and general anesthesia. Patient is status post CABG and has changes on his EKG. Surgical treatment discussed with family. Will await medical clearance. History of Present Illness HPI Consult date: 04/12/22 Requesting physician: Belinda Kessler MD Chief complaint: Closed Left Subcapital Femoral Neck Fx Narrative: 76-year-old gentleman with dementia and lung cancer brought to the emergency room from [facility] due to a fall and left leg pain. Found to have left hip fracture. Admitted for further care. Discussed with family. Was previously independent ambulator. Review of Systems Constitutional: Constitutional: Denies fever(s) Eyes: Eyes: Denies blurry vision ENT: Reports Normal hearing present Cardiovascular: Cardiovascular: Denies chest pain and Denies dyspnea Respiratory: Respiratory: Denies dyspnea and Denies wheezing Gastrointestinal: Gastrointestinal: Denies abdominal pain Genitourinary: Genitourinary: Denies urinary urgency Musculoskeletal: Musculoskeletal: Reports as per HPI and Denies numbness Integumentary/Breasts: Skin/Breast: Denies changing lesions and Denies sores Neurologic: Reports Normal hearing present, Denies behavioral changes, Denies numbness and Denies convulsions Psychiatric: Psychiatric: Denies behavioral changes and Denies hallucinations Endocrine: Endocrine: Denies heat intolerance Hematologic/Lymphatic: Hematologic/Lymphatic: Denies easy bleeding Allergic/Immunologic: Allergic/Immunologic: Denies wheezing PMFSH Past Medical History Medical History BPH (benign prostatic hyperplasia) CAD (coronary artery disease) Cancer of right lung Chronic anemia Dementia Hyperlipidemia Hypertension Surgical History Surgical History Hx of CABG Family History Family History Other Unknown family medical history Social History Social History Social History: Code status: Full code with selective treatment measures (per IDPA advanced directive form on patient's chart) Smoking packs per day: 0.5 Smoking cigarettes per day: 10.0 Years smoked: 40 Smoking pack-years: 20.00 Smoking status: Former smoker Tobacco type: cigarettes Smoking end date: 07/13/20 Alcohol intake: former Drinks per week: 1 Substance use: unknown Additional living arrangements comments: Memory Care Additional occupation/education comments: Retired from the [employer]. Spiritual care concerns
[2022-04-12 12:13] LABS: Glucose Point of Care 184 mg/dl (65-105)
[2022-04-12] MEDS: lisinopriL 5 MG TABLET PO (12:29)
--- NOTE | 2022-04-12 15:10 | PM.CNCAR ---
Assessment and Plan Assessment and plan (1) Closed subcapital fracture of neck of left femur: Qualifiers: Encounter type: initial encounter Qualified Code(s): S72.012A - Unspecified intracapsular fracture of left femur, initial encounter for closed fracture Code(s): S72.012A - Unspecified intracapsular fracture of left femur, initial encounter for closed fracture Status: Acute (2) Malignant neoplasm of unspecified part of right bronchus or lung: Code(s): C34.91 - Malignant neoplasm of unspecified part of right bronchus or lung Status: Acute (3) Hypertension: Code(s): I10 - Essential (primary) hypertension Status: Acute (4) CAD (coronary artery disease): Code(s): I25.10 - Atherosclerotic heart disease of [place] coronary artery without angina pectoris Status: Acute Plan Cardiology is being consulted for preoperative evaluation prior to left hip surgery for a left femur fracture after a fall. His ECG from this admission is unchanged from recent EKG from 03/25. Patient has no s/s of acute ischemia, acute heart failure, or severe valvular disease on exam. An echocardiogram was ordered but pending. Given patient's cardiac history, patient is at low-intermediate risk for major adverse cardiac events for the planned surgery. Surgery should not be delayed for the echocardiogram. Can hold his ASA and antihypertensives in the perioperative period, and resume when stable from a surgical standpoint. History of Present Illness History of Present Illness Consult date/time: 04/12/22 15:10 Requesting physician: Brandon Crowder APN-C Consult reason: pre-op evaluation Reason For Visit: Closed Left Subcapital Femoral Neck Fx Narrative: Patient is a 76-year-old male with a history of CAD s/p CABG, history of lung cancer, dementia, hypertension who presented from a memory care facility after having fall. Patient was brought to the ED for further evaluation and was found to have a left subcapital femoral neck fracture. Orth considering hip surgery. Given his cardiac co-morbidities, Cardiology consulted for pre-operative evaluation. Patient seen and examined at bedside, however, unable to obtain history from the patient. Patient's daughter at bedside. Daughter reports that patient has not had any cardiac issues since his bypass. He has not complained of chest pain at his care center or indicated he's having chest pain since being here. Patient was recently seen here in the ED on 03/25. Troponin checked at that time and was negative. EKG 03/25 showed ectopic atrial rhythm with RBBB. EKG from this admission is unchanged. Review of Systems Review of Systems: ROS unobtainable: Yes unobtainable due to mental status PMFSH Past Medical History Medical History (Updated 04/12/22 @ 15:46 by Radha Hughes MD) BPH (benign prostatic hyperplasia) CAD (coronary artery disease) Cancer of right lung Chronic anemia Dementia Hyperlipidemia Hypertension Surgical History Surgical History Hx of CABG Family History Family History Other Unknown family medical history Social History Social History Social History: Code status: Full code with selective treatment measures (per IDPA advanced directive form on patient's chart) Smoking packs per day: 0.5 Smoking cigarettes per day: 10.0 Years smoked: 40 Smoking pack-years: 20.00 Smoking status: Former smoker Tobacco type: cigarettes Smoking end date: 07/13/20 Alcohol intake: former Drinks per week: 1 Substance use: unknown Additional living arrangements comments: Memory Care Additional occupation/education comments: Retired from the [employer] business. Spiritual care concerns: No Meds Home Medications and Allergies Home Medications Medication Instructions
[2022-04-12 17:15] LABS: Glucose Point of Care 190 mg/dl (65-105)
[2022-04-12] MEDS: traMADol HCL (*CRX) 25 MG TABLET PO (18:56)
[2022-04-12] MEDS: MORPHINE SULFATE (*CRX) 4 MG/ML INJ 2 MG IV PUSH (19:32)
[2022-04-12 20:39] LABS: Glucose Point of Care 189 mg/dl (65-105)
[2022-04-12] MEDS: OLANZapine 10 MG INJ VIAL 5 MG IM (22:10)
[2022-04-12 23:57] LABS: Glucose Point of Care 197 mg/dl (65-105)
[2022-04-13] VITALS (36 sets, daily range): BP systolic 113–152; BP diastolic 42–93; PULSE 78–100; RESP 16–28; TEMP 36.2–37.3; O2SAT 86–100
[2022-04-13] MEDS: WATER, STERILE FOR INJECTION 10 ML VIAL XX (00:13)
[2022-04-13] MEDS: IPRATROPIUM BR 0.02% INH SOLN 0.5 MG/2.5 ML VIAL INHALATION ×3 (02:11→20:33)
[2022-04-13] MEDS: ALBUTEROL SULFATE NEB 2.5 MG/3 ML INH INHALATION ×3 (02:11→20:33)
[2022-04-13] MEDS: MORPHINE SULFATE (*CRX) 4 MG/ML INJ 2 MG IV PUSH ×2 (02:54→11:28)
[2022-04-13] MEDS: SODIUM CHLORIDE 0.9% IV 1,000 ML 125 ML IV CONT ×2 (02:55→18:14)
[2022-04-13 05:09] LABS: Basophils Percent Auto 0.1 % (0.2-1.2); Eosinophils Percent Auto 0.4 % (0-4.4); Hematocrit 24.9 % (42.0-52.0); Hemoglobin 7.7 g/dL (14.0-18.0); Immature Granulocyte Absolute 0.06 K/mm3 (0.00-0.031); Immature Granulocyte Percent A 0.8 % (0-0.5); Lymphocytes Absolute Auto 0.75 K/mm3 (0.9-3.2); Lymphocytes Percent Auto 9.5 % (18.3-44.2); Mean Corpuscular HGB Conc 30.9 g/dl (32-36); Mean Corpuscular Hemoglobin 27.8 pg (26-34); Mean Corpuscular Volume 89.9 fl (80-100); Monocytes Absolute Auto 0.6 K/mm3 (0.1-0.6); Monocytes Percent Auto 7.1 % (2.6-8.5); Neutrophils Absolute Auto 6.5 K/mm3 (1.3-6.7); Neutrophils Percent Auto 82.1 % (45.5-73.1); Nucleated Red Blood Cells Perc 0.3 % (0.0-0.2); Platelet Count Result 298 k/mm3 (150-375); Red Blood Count 2.77 M/mm3 (4.6-6.20); Red Cell Distribution Width 14.7 % (11.5-14.5); White Blood Count 7.9 K/mm3 (4.5-10.0)
[2022-04-13 05:24] LABS: Glucose Point of Care 181 mg/dl (65-105)
[2022-04-13 05:32] LABS: Alanine Aminotransferase 34 U/L (6-50); Albumin Level 2.7 g/dL (3.5-5.1); Alkaline Phosphatase 118 U/L (38-126); Anion Gap 7 mmol/L (8-16); Aspartate Amino Transferase 32 U/L (17-59); Bilirubin,Total 0.4 mg/dL (0.2-1.3); Blood Urea Nitrogen 13 mg/dL (9-20); Calcium 7.5 mg/dL (8.4-10.2); Carbon Dioxide 27 mmol/L (22-30); Chloride 103 mmol/L (98-107); Estimated CRCL calculation 60 ml/min; Estimated Glomerular Filt Rate > 60; Glucose 188 mg/dL (65-110); Magnesium 1.7 mg/dL (1.6-2.3); Potassium 3.3 mmol/L (3.4-5.0); Sodium 137 mmol/L (137-145)
[2022-04-13 05:37] LABS: Iron 24 ug/dL (49-181)
[2022-04-13 05:46] LABS: Percent Iron Saturation 20 % (20-50)
[2022-04-13 05:47] LABS: Transferrin < 80 mg/dL (206-381)
[2022-04-13 06:31] LABS: Folic Acid 8.9 ng/mL (2.76->20)
[2022-04-13] MEDS: MAGNESIUM SULF 2 GM/WATER 50ML 2 GM/50 ML BAG IVPB (06:55)
--- NOTE | 2022-04-13 07:01 | WPDHPUPDATE1 ---
History and Physical Update Update Date/Time: 04/13/22 07:01 History and Physical has been reviewed, including an updated exam of the patient. There are NO changes in the patient's condition. Risks, benefits, and alternatives have been discussed and questions answered. Patient agrees to proceed with procedure.
--- NOTE | 2022-04-13 07:20 | PC.NURSE ---
To OR via bed.
[2022-04-13 08:01] LABS: Ferritin > 2000.00 ng/mL (11.1-264)
[2022-04-13] MEDS: ceFAZolin 2 GM/D5W 50 ML 2 GM/50 ML BAG IVPB (08:05)
--- NOTE | 2022-04-13 08:13 | WPDANESEPPF ---
Anes - Initial Pre Proc Eval Procedure: Operation Date: 04/13/22 08:00 Proposed Procedures p Hip Pinning Cannulated Screws(Left) - Kavon Frye MD Date/Time: 04/13/22 08:13 Surgeon: Jane Mcguire DO Pre Op Diagnosis: Closed Left Subcapital Femoral Neck Fx Patient Data Age: 76 Gender: M Height: 1.68 m Weight: 62.3 kg Last Vital Signs Temp 36.7 C 04/13/22 04:52 Pulse 81 04/13/22 04:52 Resp 16 04/13/22 04:52 BP 126/42 L 04/13/22 04:52 Pulse Ox 95 04/13/22 04:52 O2 Del Method Room Air 04/13/22 02:52 O2 Flow Rate 2 04/12/22 14:48 Allergies Allergy/AdvReac Type Severity Reaction Status Date / Time No Known Allergies Allergy Verified 04/11/22 23:35 Home Medications Medication Instructions Recorded Confirmed Type aspirin 81 mg tablet,delayed 81 mg PO DAILY 01/20/22 04/11/22 History release (Adult Low Dose Aspirin) lisinopril 5 mg tablet 5 mg PO DAILY 01/20/22 04/11/22 History metoprolol succinate 25 mg 25 mg PO DAILY 01/20/22 04/11/22 History tablet,extended release 24 hr tamsulosin 0.4 mg capsule 0.4 mg PO DAILY 01/20/22 04/11/22 History Laboratory Tests 04/12/22 04/12/22 04/12/22 08:26 08:56 12:09 WBC RBC Hgb Hct MCV MCH MCHC RDW Plt Count MPV Immature Gran % (Auto) Neut % (Auto) Lymph % (Auto) [place] % (Auto) Eos % (Auto) Baso % (Auto) Lymph # (Auto) [place] # (Auto) Eos # (Auto) Baso # (Auto) Abs Immat Gran (auto) Absolute Neuts (auto) Absolute Nucleated RBC Nucleated RBC % Sodium Potassium Chloride Carbon Dioxide Anion Gap BUN Creatinine Estim Creat Clear Calc Estimated GFR Glucose POC Capillary Glucose 191 mg/dl H mg/dl 184 mg/dl H mg/dl (65-105) (65-105) Calcium Magnesium 1.9 mg/dL mg/dL (1.6-2.3) Iron TIBC % Saturation Transferrin Ferritin Total Bilirubin AST ALT Alkaline Phosphatase Total Protein Albumin Vitamin B12 Folate TSH (Reflex) 04/12/22 04/12/22 04/12/22 17:11 20:29 23:51 WBC RBC Hgb Hct MCV MCH MCHC RDW Plt Count MPV Immature Gran % (Auto) Neut % (Auto) Lymph % (Auto) [place] % (Auto) Eos % (Auto) Baso % (Auto) Lymph # (Auto) [place] # (Auto) Eos # (Auto) Baso # (Auto) Abs Immat Gran (auto) Absolute Neuts (auto) Absolute Nucleated RBC Nucleated RBC % Sodium Potassium Chloride Carbon Dioxide Anion Gap BUN Creatinine Estim Creat Clear Calc Estimated GFR Glucose POC Capillary Glucose 190 mg/dl H mg/dl 189 mg/dl H mg/dl 197 mg/dl H mg/dl (65-105) (65-105) (65-105) Calcium Magnesium Iron TIBC % Saturation Transferrin Ferritin Total Bilirubin AST ALT Alkaline Phosphatase Total Protein Albumin Vitamin B12 Folate TSH (Reflex) 04/13/22 04/13/22 04/13/22 04:56 04:56 04:56 WBC 7.9 K/mm3 K/mm3
[2022-04-13] MEDS: BUPIVACAINE/EPINEPHRINE 0.25% 50 ML VIAL INFILTRATE (08:35)
--- NOTE | 2022-04-13 08:57 | W.PM.PROC2 ---
Procedure Note - Detailed Date of Procedure 04/13/22 Pre-op Diagnosis Closed Left Subcapital Femoral Neck Fx Post-op Diagnosis Same Procedure Performed Left hip pinning Surgeon Kavon Frye MD [employer] health information assistant Anesthesia General Indications 76-year-old gentleman with dementia who fell and sustained a left hip femoral neck fracture. Indicated for reduction and fixation. Discussed with family would like to proceed to aid with pain control, hygiene and return to activity. Description of Procedure Informed consent signed by POA. Extremity marked in preoperative holding area. Patient received intravenous antibiotics. Brought to operating room and underwent general anesthetic by the Anesthesia Team. Positioned supine on the fracture table. Left leg placed into longitudinal traction. Right leg extended out of field. Image intensification brought in and confirmed reduction of fracture. Left hip prepped and draped in usual sterile surgical fashion using ChloraPrep skin solution. Image intensification used to guide the starting position and a longitudinal incision made with 10 blade knife over the lateral proximal femur. Blunt dissection carried down to the lateral femur. Bleeding controlled with electrocautery. First guide pin placed in the inferior center position of the femoral neck and head. Confirmed with image intensification. Two subsequent pins placed superior and anterior and superior and posterior to the 1st pin to create an inverted triangle type pattern. Pins confirmed with image intensification. Length of screw measured, reaming performed. Appropriate size screw placed with good compression and fixation noted for all 3 pins. Guide pins removed. Final image intensification confirmed reduction of fracture and placement of hardware with threads past the fracture line and no protrusion of the hip joint. Wound thoroughly irrigated with antibiotic solution. Fascia repaired with 2 0 Vicryl interrupted sutures. Subcutaneous tissue repaired with 3 0 Monocryl interrupted suture. Skin approximated with 3 0 Monocryl running suture. Sterile dressing applied. Patient awoken from anesthesia, extubated and returned to recovery room in stable condition. All sponge needle and instrument counts correct at the end of the case. Implants Synthes stainless 6.5 millimeter cannulated screw x3 (90 mm) Estimated Blood Loss 5 Drains No Packing No Pathology None sent Complications None Condition Stable Disposition PACU
[2022-04-13] MEDS: LACTATED RINGERS 1,000 ML 30 ML IV CONT (09:05)
[2022-04-13] MEDS: fentaNYL CITRATE INJ (*CRX) 100 MCG/2 ML VIAL 25 MCG IV PUSH ×4 (09:37→09:49)
[2022-04-13 09:54] LABS: Glucose Point of Care 174 mg/dl (65-105)
--- NOTE | 2022-04-13 10:20 | PC.NURSE ---
Returned from OR via bed.
[2022-04-13] MEDS: SODIUM CHLORIDE 0.9% IV 250 ML 30 ML IV CONT (10:43)
--- NOTE | 2022-04-13 11:24 | PCPTNOTE ---
1100: HOLD PT eval; discussed pt with AUSTIN Lundberg, she reports pt just returned from surgery, has dementia and is restless; she request HOLD PT this date, try in AM;
[2022-04-13] MEDS: METOPROLOL SUCCINATE EXT REL 25 MG TABCR PO (11:36)
[2022-04-13] MEDS: TAMSULOSIN HCL 0.4 MG CAPSULE PO (11:36)
[2022-04-13] MEDS: ASPIRIN 81 MG ENTERIC TABLET PO (11:36)
[2022-04-13] MEDS: lisinopriL 5 MG TABLET PO (11:36)
[2022-04-13] MEDS: POTASSIUM CHLORIDE 20 MEQ TABLET 40 MEQ PO (11:36)
[2022-04-13] MEDS: FERROUS SULFATE 324 MG TABLET PO (11:37)
[2022-04-13] MEDS: polyethylene glycoL 3350 17 GM POWD.PACK PO (11:37)
--- NOTE | 2022-04-13 11:45 | P.PNIM_ITS ---
Progress Note: A&P Assessment and Plan (1) Closed subcapital fracture of neck of left femur: Qualifiers: Encounter type: initial encounter Qualified Code(s): S72.012A - Unspecified intracapsular fracture of left femur, initial encounter for closed fracture Code(s): S72.012A - Unspecified intracapsular fracture of left femur, initial encounter for closed fracture Status: Acute Assessment and Plan: * Hip/Pel xray subcapital fracture of the left femoral neck, mild osteoarthritis of the hips * Ortho consulted * NPO for now * Urinary catheter for decreased mobility * Pain medications Tylenol and morphine for now * Antiemetics Zofran * DVT prophylaxis on hold for now * Cardiology consulted for cardiac clearance * Echo ordered * EKG appear stable and unchanged since last EKG * Some wheezing heard, breathing treatments ordered * Post op care per ortho * Surgical intervention scheduled for today (2) Hypokalemia: Code(s): E87.6 - Hypokalemia Status: Acute Assessment and Plan: * Current K is 3.3 * 40mcg PO once * Supplement as indicated * Trend labs (3) Dementia: Qualifiers: Dementia behavioral or psychological symptom: with agitation Dementia severity: moderate Dementia type: unspecified type Qualified Code(s): F03.B11 - Unspecified dementia, moderate, with agitation Code(s): F03.90 - Unspecified dementia, unspecified severity, without behavioral disturbance, psychotic disturbance, mood disturbance, and anxiety Status: Acute Assessment and Plan: * No current home medications * Trend behavior and mood * Monitor for signs of delirium * Keep a strict day/night schedule * Light, curtains, and reorietation when appropiate to maintain day/night cycle * Avoid sedative medication (4) HERNANDEZ (acute kidney injury): Code(s): N17.9 - Acute kidney failure, unspecified Status: Acute Assessment and Plan: * BUN/Cr elevated at admission 24/1.40 * IV fluids NS at 125ml/hr * Seems to be related to dehydration * BUN/Cr stable currently 13/0.80 * Baseline appears to be 1.0-1.2 * Continue to trend labs (5) Hypertension: Code(s): I10 - Essential (primary) hypertension Status: Acute Assessment and Plan: * Current BP is 152/76 * Continue home lisinopril and metoprolol * Trend BP * Adjust therapy as indicated (6) Fall: Code(s): W19.XXXA - Unspecified fall, initial encounter Status: Acute Assessment and Plan: * Ground level fall x 2 at the [facility] * Head CT negative for any intracranial findings * Hip fracture noted * Fall precautions * PT/OT as appropriate (7) Diabetes: Code(s): E11.9 - Type 2 diabetes mellitus without complications Status: Acute Assessment and Plan: * Appears to be a new onset * A1c 9.6, glucose 188 * Accu cheks Q6H while NPO, change to AC/HS when able to eat * Trend glucose * ISS * Hypoglycemia protocol * Adjust therapy as indicated (8) Anemia: Code(s): D64.9 - Anemia, unspecified Status: Acute Assessment and Plan: * H/H 7.7/24.9 currently * Anemia labs: iron 24, TIBC 119, % sat 20, Transferrin <80, B12 991, Folate 8.9 * Unknown source at this time * Supplement with 324mg PO BID * Senna and miralax ordered * T
--- NOTE | 2022-04-13 11:45 | PM.IMPN ---
Progress Note: A&P Assessment and Plan (1) Closed subcapital fracture of neck of left femur: Qualifiers: Encounter type: initial encounter Qualified Code(s): S72.012A - Unspecified intracapsular fracture of left femur, initial encounter for closed fracture Code(s): S72.012A - Unspecified intracapsular fracture of left femur, initial encounter for closed fracture Status: Acute Assessment and Plan: Hip/Pel xray subcapital fracture of the left femoral neck, mild osteoarthritis of the hips Ortho consulted NPO for now Urinary catheter for decreased mobility Pain medications Tylenol and morphine for now Antiemetics Zofran DVT prophylaxis on hold for now Cardiology consulted for cardiac clearance Echo ordered EKG appear stable and unchanged since last EKG Some wheezing heard, breathing treatments ordered Post op care per ortho Surgical intervention scheduled for today (2) Hypokalemia: Code(s): E87.6 - Hypokalemia Status: Acute Assessment and Plan: Current K is 3.3 40mcg PO once Supplement as indicated Trend labs (3) Dementia: Qualifiers: Dementia behavioral or psychological symptom: with agitation Dementia severity: moderate Dementia type: unspecified type Qualified Code(s): F03.B11 - Unspecified dementia, moderate, with agitation Code(s): F03.90 - Unspecified dementia, unspecified severity, without behavioral disturbance, psychotic disturbance, mood disturbance, and anxiety Status: Acute Assessment and Plan: No current home medications Trend behavior and mood Monitor for signs of delirium Keep a strict day/night schedule Light, curtains, and reorietation when appropiate to maintain day/night cycle Avoid sedative medication (4) HERNANDEZ (acute kidney injury): Code(s): N17.9 - Acute kidney failure, unspecified Status: Acute Assessment and Plan: BUN/Cr elevated at admission 24/1.40 IV fluids NS at 125ml/hr Seems to be related to dehydration BUN/Cr stable currently 13/0.80 Baseline appears to be 1.0-1.2 Continue to trend labs (5) Hypertension: Code(s): I10 - Essential (primary) hypertension Status: Acute Assessment and Plan: Current BP is 152/76 Continue home lisinopril and metoprolol Trend BP Adjust therapy as indicated (6) Fall: Code(s): W19.XXXA - Unspecified fall, initial encounter Status: Acute Assessment and Plan: Ground level fall x 2 at the [facility] Head CT negative for any intracranial findings Hip fracture noted Fall precautions PT/OT as appropriate (7) Diabetes: Code(s): E11.9 - Type 2 diabetes mellitus without complications Status: Acute Assessment and Plan: Appears to be a new onset A1c 9.6, glucose 188 Accu cheks Q6H while NPO, change to AC/HS when able to eat Trend glucose ISS Hypoglycemia protocol Adjust therapy as indicated (8) Anemia: Code(s): D64.9 - Anemia, unspecified Status: Acute Assessment and Plan: H/H 7.7/24.9 currently Anemia labs: iron 24, TIBC 119, % sat 20, Transferrin <80, B12 991, Folate 8.9 Unknown source at this time Supplement with 324mg PO BID Senna and miralax ordered Trend H/H Transfuse if Hgb <7.0 Ortho ordered 2 units of blood at this time (04/13/22) (9) Electrolyte abnormality: Code(s): E87.8 - Other disorders of electrolyte and fluid balance, not elsewhere classified Status: Acute Assessment and Plan: Mag 1.7, Allen 7.5 Corrected allen 8.1 Albumin 2.7 2gm Mag x1 Trend labs Supplement as indicated Time Spent With Patient Time with patient: Greater than 35 minutes Subjective Date/time seen: 04/13/22 1145 Interval history: 04/13/22 1145 Patient just returned back to switch from surgery. Patient s
[2022-04-13 11:46] LABS: Glucose Point of Care 177 mg/dl (65-105)
--- NOTE | 2022-04-13 13:22 | PCOTNOTE ---
Attempted OT evaluation; per RN pt. just returned from surgery and has dementia. Requested to hold today. Will attempt tomorrow as able.
[2022-04-13] MEDS: SODIUM CHLORIDE 0.9% IV 250 ML 30 ML (14:44)
[2022-04-13 18:14] LABS: Glucose Point of Care 188 mg/dl (65-105)
[2022-04-13 20:51] LABS: Glucose Point of Care 250 mg/dl (65-105)
[2022-04-14] VITALS (18 sets, daily range): BP systolic 134–148; BP diastolic 46–71; PULSE 77–100; RESP 16–24; TEMP 36.5–37.2; O2SAT 92–99; BMI 10.0
--- NOTE | 2022-04-14 | ECHO_ITS ---
Patient Info Name: Devan Bar Age: 76 years : 1945 Gender: Male Ht: 66 in Wt: 137 lbs BSA: 1.70 m2 HR: 99 bpm BP: 118 / 74 mmHg Heart Rhythm: Sinus Rhythm Exam Date: 04/14/2022 8:51 AM Exam Location: [facility] Patient Status: Inpatient Admit Date: 04/11/2022 Staff Ordering Physician: Brandon Crowder Consulting Practice Director: Sandeep Garcia RDCS, RT Attending Provider: Sylvia Short PA-C Referring Physician: Vel RICHTER; Exam Type: CA echo doppler color flow Study Info Indications G45.8 - Other transient cerebral ischemic attacks and related syndromes Complete two-dimensional, color flow and Doppler transthoracic echocardiogram is performed. Summary 1. Technically difficult study with limited views. Regional wall motion assessment limited due to poor endomyocardial border definition in several views. Suspicion for apical inferior hypokinesis although not well visualized. 2. Left ventricular chamber dimension is normal. 3. Left ventricular systolic function is normal, estimated at 55-60%. 4. There is mildly increased left ventricular wall thickness. 5. The left ventricular diastolic function is grade I diastolic dysfunction. 6. There is no aortic valve stenosis. 7. There is no mitral valve regurgitation. 8. Unable to estimate PA systolic pressure due to poor spectral resolution of tricuspid regurgitant jet velocity. Left Ventricle Left ventricular chamber dimension is normal. Left ventricular systolic function is normal, estimated at 55-60%. There is mildly increased left ventricular wall thickness. The left ventricular diastolic function is grade I diastolic dysfunction. Technically difficult study with limited views. Regional wall motion assessment limited due to poor endomyocardial border definition in several views. Suspicion for apical inferior hypokinesis although not well visualized. Right Ventricle Right ventricular chamber dimension is not well visualized. Left Atria Left atrial chamber dimension is normal. Right Atria Right atrial chamber dimension is normal. Aortic Valve The aortic valve is not well visualized. There is no aortic valve stenosis. There is trace aortic valve regurgitation. Pulmonic Valve The pulmonic valve is not well visualized. Mitral Valve The mitral valve has normal leaflets. There is no mitral valve regurgitation. The mitral valve annulus is mildly calcified. Tricuspid Valve The tricuspid valve leaflets are not well visualized. Unable to estimate PA systolic pressure due to poor spectral resolution of tricuspid regurgitant jet velocity. Pericardium/Pleural The pericardium appears normal. Inferior Vena Cava Normal inferior vena cava with >50% collapse upon inspiration consistent with normal right atrial pressure, 5 mmHg. Aorta The aortic root size at the sinus of Valsalva is normal. Left Ventricular Outflow Tract Name Value Normal LVOT 2D LVOT Diameter 2.1 cm LVOT Doppler LVOT Peak Gradient 5 mmHg LVOT Mean Gradient 2 mmHg LVOT VTI 24 cm
[2022-04-14] MEDS: MORPHINE SULFATE (*CRX) 4 MG/ML INJ 2 MG IV PUSH ×2 (00:42→10:44)
[2022-04-14 06:03] LABS: Basophils Percent Auto 0.2 % (0.2-1.2); Eosinophils Percent Auto 0.1 % (0-4.4); Hematocrit 29.6 % (42.0-52.0); Hemoglobin 9.5 g/dL (14.0-18.0); Immature Granulocyte Absolute 0.09 K/mm3 (0.00-0.031); Immature Granulocyte Percent A 0.9 % (0-0.5); Lymphocytes Absolute Auto 1.36 K/mm3 (0.9-3.2); Lymphocytes Percent Auto 13.2 % (18.3-44.2); Mean Corpuscular HGB Conc 32.1 g/dl (32-36); Mean Corpuscular Hemoglobin 27.9 pg (26-34); Mean Corpuscular Volume 86.8 fl (80-100); Mean Platelet Volume 10.3 fl (7.4-10.4); Monocytes Absolute Auto 0.8 K/mm3 (0.1-0.6); Monocytes Percent Auto 8.1 % (2.6-8.5); Neutrophils Percent Auto 77.5 % (45.5-73.1); Nucleated Red Blood Cells Perc 0.2 % (0.0-0.2); Platelet Count Result 278 k/mm3 (150-375); Red Blood Count 3.41 M/mm3 (4.6-6.20); Red Cell Distribution Width 14.9 % (11.5-14.5); White Blood Count 10.3 K/mm3 (4.5-10.0)
[2022-04-14 06:20] LABS: Alanine Aminotransferase 29 U/L (6-50); Albumin Level 2.7 g/dL (3.5-5.1); Alkaline Phosphatase 129 U/L (38-126); Anion Gap 7 mmol/L (8-16); Aspartate Amino Transferase 36 U/L (17-59); Bilirubin,Total 0.5 mg/dL (0.2-1.3); Blood Urea Nitrogen 12 mg/dL (9-20); Calcium 7.6 mg/dL (8.4-10.2); Carbon Dioxide 26 mmol/L (22-30); Chloride 106 mmol/L (98-107); Estimated CRCL calculation 49 ml/min; Estimated Glomerular Filt Rate > 60; Glucose 202 mg/dL (65-110); Magnesium 1.8 mg/dL (1.6-2.3); Potassium 3.9 mmol/L (3.4-5.0); Sodium 139 mmol/L (137-145)
[2022-04-14] MEDS: SODIUM CHLORIDE 0.9% IV 1,000 ML 75 ML IV CONT (07:38)
--- NOTE | 2022-04-14 07:44 | WPDANESPN ---
Anes - Prog Note Post-Op Date/Time: 04/14/22 07:44 Cardiovascular status: other (anemia) Respiratory status: normal Airway patency: baseline Mental status: baseline Post-Op hydration status: normal Vital Signs: Last Vital Signs Temp 97.7 F 04/14/22 05:55 Pulse 77 04/14/22 05:55 Resp 18 04/14/22 05:55 BP 147/53 H 04/14/22 05:55 Pulse Ox 97 04/14/22 05:55 O2 Del Method Room Air 04/13/22 20:38 O2 Flow Rate 3 04/13/22 10:30 Pain Score (VAS): 08/22 I/O: Intake & Output 04/13/22 04/13/22 04/14/22 15:59 23:59 07:59 Intake Total 0460 202 0173 Output Total 300 300 Balance 1255 100 700 Laboratory Tests 04/14/22 05:01 04/14/22 05:01 04/13/22 04/13/22 04/13/22 04:56 07:10 09:21 WBC RBC Hgb Hct MCV MCH MCHC RDW Plt Count MPV Immature Gran % (Auto) Neut % (Auto) Lymph % (Auto) [place] % (Auto) Eos % (Auto) Baso % (Auto) Lymph # (Auto) [place] # (Auto) Eos # (Auto) Baso # (Auto) Abs Immat Gran (auto) Absolute Neuts (auto) Absolute Nucleated RBC Nucleated RBC % Sodium Potassium Chloride Carbon Dioxide Anion Gap BUN Creatinine Estim Creat Clear Calc Estimated GFR Glucose POC Capillary Glucose 174 H Calcium Magnesium Ferritin > 2000.00 H Total Bilirubin AST ALT Alkaline Phosphatase Total Protein Albumin Blood Type A Positive Antibody Screen Negative Crossmatch See Detail 04/13/22 04/13/22 04/13/22 11:40 18:12 20:48 WBC RBC Hgb Hct MCV MCH MCHC RDW Plt Count MPV Immature Gran % (Auto) Neut % (Auto) Lymph % (Auto) [place] % (Auto) Eos % (Auto) Baso % (Auto) Lymph # (Auto) [place] # (Auto) Eos # (Auto) Baso # (Auto) Abs Immat Gran (auto) Absolute Neuts (auto) Absolute Nucleated RBC Nucleated RBC % Sodium Potassium Chloride Carbon Dioxide Anion Gap BUN Creatinine Estim Creat Clear Calc Estimated GFR Glucose POC Capillary Glucose 177 H 188 H 250 H Calcium Magnesium Ferritin Total Bilirubin AST ALT Alkaline Phosphatase Total Protein Albumin Blood Type Antibody Screen Crossmatch 04/14/22 04/14/22 05:01 05:01 WBC 10.3 H RBC 3.41 L Hgb 9.5 L Hct 29.6 L MCV 86.8 MCH 27.9 MCHC 32.1 RDW 14.9 H Plt Count 278 MPV 10.3 Immature Gran % (Auto) 0.9 H Neut % (Auto) 77.5 H Lymph % (Auto) 13.2 L [place] % (Auto) 8.1 Eos % (Auto) 0.1 Baso % (Auto) 0.2 Lymph # (Auto) 1.36 [place] # (Auto) 0.8 H Eos # (Auto) 0.0 Baso # (Auto) 0.0 Abs Immat Gran (auto) 0.09 H Absolute Neuts (auto) 8.0 H Absolute Nucleated RBC 0.0 Nucleated RBC % 0.2 Sodium 139 Potassium 3.9 Chloride 106 Carbon Dioxide 26 Anion Gap 7 L BUN 12 Creatinine 1.00 Estim Creat Clear Calc 49 Estimated GFR > 60 Glucose 202 H POC Capillary Glucose Calcium 7.6 L Magnesium 1.8 Ferritin Total Bilirubin 0.5 AST 36 ALT 29 Alkaline Phosphatase 129 H Total Protein 6.0 L Albumin 2.7 L Blood Type Antibody Screen Crossmatch Post-procedural complaints: none Patient Feedback: Patient satisfied with anesthetic care.
[2022-04-14] MEDS: IPRATROPIUM BR 0.02% INH SOLN 0.5 MG/2.5 ML VIAL INHALATION ×3 (07:51→19:57)
[2022-04-14] MEDS: ALBUTEROL SULFATE NEB 2.5 MG/3 ML INH INHALATION ×3 (07:51→19:57)
[2022-04-14 08:37] LABS: Glucose Point of Care 174 mg/dl (65-105)
--- NOTE | 2022-04-14 09:08 | PM.PNORT ---
Progress Note: A&P Assessment and Plan (1) Closed subcapital fracture of neck of left femur: Qualifiers: Encounter type: subsequent encounter Fracture healing: with routine healing Qualified Code(s): S72.012D - Unspecified intracapsular fracture of left femur, subsequent encounter for closed fracture with routine healing Code(s): S72.012A - Unspecified intracapsular fracture of left femur, initial encounter for closed fracture Status: Acute Assessment and Plan: POD #1 : Left Hip Pinning PT/OT as tolerated. WBAT. Walker. HIGH FALL RISK. Continue pain control. Ice hip. Protect skin. DVT prophylaxis. SCDs. Incentive Spirometry Use reviewed. Monitor Dressing. Change prior to discharge. Replace with Mepilex silver. Bowel Regimen. Dispo: SNF when medically cleared. (2) Dementia: Qualifiers: Dementia type: unspecified type Dementia severity: moderate Dementia behavioral or psychological symptom: with agitation Qualified Code(s): F03.B11 - Unspecified dementia, moderate, with agitation Code(s): F03.90 - Unspecified dementia, unspecified severity, without behavioral disturbance, psychotic disturbance, mood disturbance, and anxiety Status: Acute Assessment and Plan: Resides in [facility]. Subjective Subjective Date/Time Seen: 04/14/22 09:08 Post Op day: 1 Interval history: POD #1: Left hip pinning Patient awake. Confused, baseline. Appears comfortable. Review of Systems Review of Systems: ROS unobtainable: Yes unobtainable due to mental status Exam Const: General: comfortable and no acute distress Resp: Effort & Inspection: normal respiratory effort Urinary Catheter: Urinary Catheter: patent and draining and urine clear Skin: Wounds: no wounds Other: Incision left hip c/d/i Extrem: Left lower extremity: hip/thigh Details: tenderness Location: of the hip Location: laterally, knee Details: normal to inspection, lower leg (Negative Anai's Sign ), ankle Details: normal to inspection and foot Details: normal capillary refill, toes with normal ROM and vascular exam Details: dorsalis pedis pulse present Objective Data Vital Signs Vital Signs: Vital Signs - 24 hr 04/13/22 09:20 04/13/22 09:35 04/13/22 09:50 Temperature Pulse Rate 83 85 80 Respiratory Rate 19 20 19 Blood Pressure 140/59 L 148/50 H 138/53 L Pulse Oximetry 100 92 94 Oxygen Delivery Simple Face Mask Nasal Cannula Nasal Cannula Oxygen Flow Rate 10 2 3 04/13/22 10:05 04/13/22 10:52 04/13/22 10:30 Temperature 36.2 C L Pulse Rate 86 98 Respiratory Rate 16 20 20 Blood Pressure 130/51 L 113/57 L Pulse Oximetry 94 95 95 Oxygen Delivery Nasal Cannula Nasal Cannula Oxygen Flow Rate 3 3 04/13/22 11:36 04/13/22 11:08 04/13/22 10:14 Temperature 36.2 C L 36.3 C L Pulse Rate 97 97 100 Respiratory Rate 20 20 Blood Pressure 145/93 H 128/60 Pulse Oximetry 95 95 Oxygen Delivery Oxygen Flow Rate 04/13/22 10:29 04/13/22 10:59 04/13/22 12:23 Temperature 36.2 C L 36.2 C L 36.6 C Pulse Rate 81 94 92 Respiratory Rate 20 20 18 Blood Pressure 113/57 L 145/93 H 152/76 H Pulse Oximetry 95 95 98 Oxygen Delivery Oxygen Flow Rate 04/13/22 12:04 04/13/22 12:08 04/13/22 13:08 Temperature 36.6 C 36.8 C Pulse Rate 92 92 93 Respiratory Rate 18 16 Blood Pressure 152/76 H 143/77 H Pulse Oximetry 98 96 Oxygen Delivery Oxygen Flow Rate 04/13/22 13:50 04/13/22 14:35 04/13/22 13:50 Temperature 36.8 C 36.6 C 36.8 C Pulse Rate 95 89 95 Respiratory Rate 16 18 16 Blood Pressure 141/80 H 128/58 L 141/80 H Pulse Oximetry 95 94 95 Oxygen Delivery Oxygen Flow Rate 04/13/22 14:50 04/13/22 14:49 04/13/22 15:03 Temperature 36.6 C Pulse Rate 90 80 92 Respiratory Rate 18 18 18 Blood Pressure 129/54 L Pulse Oximetry 100 Oxygen Delivery Oxygen Flow Rate 04/13/22 15:50 04/13/22 16:00 04/13/22 15:59 Temperature 37.2 C
--- NOTE | 2022-04-14 09:38 | PCCARD ---
Patients echo was done in a semi R decubitus position due to recent hip surgery. Echo windows were suboptimal. James
[2022-04-14] MEDS: ASPIRIN 81 MG ENTERIC TABLET PO (09:58)
[2022-04-14] MEDS: METOPROLOL SUCCINATE EXT REL 25 MG TABCR PO (09:58)
[2022-04-14] MEDS: TAMSULOSIN HCL 0.4 MG CAPSULE PO (09:58)
[2022-04-14] MEDS: lisinopriL 5 MG TABLET PO (09:59)
[2022-04-14] MEDS: FERROUS SULFATE 324 MG TABLET PO ×2 (09:59→17:06)
[2022-04-14] MEDS: polyethylene glycoL 3350 17 GM POWD.PACK PO (10:00)
[2022-04-14] MEDS: SENNA/DOCUSATE SODIUM TABLET 2 TAB PO ×2 (10:00→17:06)
--- NOTE | 2022-04-14 11:40 | PM.IMPN ---
Progress Note: A&P Assessment and Plan (1) Closed subcapital fracture of neck of left femur: Qualifiers: Encounter type: subsequent encounter Fracture healing: with routine healing Qualified Code(s): S72.012D - Unspecified intracapsular fracture of left femur, subsequent encounter for closed fracture with routine healing Code(s): S72.012A - Unspecified intracapsular fracture of left femur, initial encounter for closed fracture Status: Acute Assessment and Plan: Fall at nursing facility resulting in left hip fracture Hip/Pelvis xray showed subcapital fracture of the left femoral neck Patient is postoperative day #1 left hip pinning Appreciate orthopedic surgery consultation and management Supportive care. Analgesics available as needed Continue PT/OT Fall precautions (2) Dementia: Qualifiers: Dementia type: unspecified type Dementia severity: moderate Dementia behavioral or psychological symptom: with agitation Qualified Code(s): F03.B11 - Unspecified dementia, moderate, with agitation Code(s): F03.90 - Unspecified dementia, unspecified severity, without behavioral disturbance, psychotic disturbance, mood disturbance, and anxiety Status: Acute Assessment and Plan: Patient is at his baseline mental status. Care to limit risk for delirium including maintaining days/night schedule, reorientation, limit narcotics (3) HERNANDEZ (acute kidney injury): Code(s): N17.9 - Acute kidney failure, unspecified Status: Acute Assessment and Plan: Resolved. Creatinine 1.4 on presentation. Patient was rehydrated with IV fluids and creatinine has remained stable. Continue to monitor renal function (4) Hypertension: Code(s): I10 - Essential (primary) hypertension Status: Acute Assessment and Plan: Blood pressures are stable. Continue home lisinopril and metoprolol monitor BP trends (5) Fall: Code(s): W19.XXXA - Unspecified fall, initial encounter Status: Acute Assessment and Plan: Ground level fall x 2 at the [facility]. Head CT negative for any intracranial findings. Patient unfortunately sustained hip fracture secondary to fall. Fall precautions implemented. Appreciate PT/OT (6) Diabetes: Code(s): E11.9 - Type 2 diabetes mellitus without complications Status: Acute Assessment and Plan: Random glucose elevated on presentation. A1c is 9.6. PMH does not indicate history of diabetes inpatient is not on insulin or oral hypoglycemics. Continue Accu-Cheks, sliding scale insulin, hypoglycemic protocol. Blood sugars better controlled today, 170-200. Will initiate low-dose Lantus. Continue to monitor glucose trends adjust insulin as needed (7) Anemia: Code(s): D64.9 - Anemia, unspecified Status: Acute Assessment and Plan: Hemoglobin 7.7 preoperatively. Received 2 units pRBC per orthopedic surgery recommendations. Iron panel consistent with anemia of chronic disease. H&H remaining stable today following transfusion. Continue to monitor. Check stool occult blood test. (8) Electrolyte abnormality: Code(s): E87.8 - Other disorders of electrolyte and fluid balance, not elsewhere classified Status: Acute Assessment and Plan: Hypokalemia resolved with supplementation. Corrected calcium within normal limits. Mag 1.8 today. Begin 400 mg mag oxide daily. Monitor BMP Subjective Date/time seen: 04/14/22 11:40 Interval history: Date of service: 04/14/2022 Devan Bar is a 76 year old male with a history of CAD, lung cancer, hyperlipidemia, hypertension, dementia, chronic anemia, and BPH who is seen in follow up for left hip fracture s/p left hip pinning on 04/13/22. Patient not oriented and not able to provide any information. Nursing staff states patient has been tugging at lines. Telemetry has been discontinued due to this. Gómez catheter d
[2022-04-14 11:52] LABS: Glucose Point of Care 179 mg/dl (65-105)
--- NOTE | 2022-04-14 15:31 | PM.PNCARD ---
Progress Note: A&P Assessment and Plan (1) CAD (coronary artery disease): Code(s): I25.10 - Atherosclerotic heart disease of [place] coronary artery without angina pectoris Status: Acute Assessment and Plan: Stable. Patient regards cardiovascular follow-up. Will confirm his follow-up prior to discharge but otherwise we will sign off as there are no other acute cardiovascular issues at this time. Continue aspirin daily. Ideally, addition of statin therapy would be appropriate. No signs or symptoms suggestive of heart failure postop. Please do not hesitate to contact with any additional questions or concerns. He does not have cardiology follow-up please notify us so we may set up follow-up with Dr. Hughes in our office as an outpatient. (2) Closed subcapital fracture of neck of left femur: Qualifiers: Encounter type: subsequent encounter Fracture healing: with routine healing Qualified Code(s): S72.012D - Unspecified intracapsular fracture of left femur, subsequent encounter for closed fracture with routine healing Code(s): S72.012A - Unspecified intracapsular fracture of left femur, initial encounter for closed fracture Status: Acute Assessment and Plan: Postop day 1. Left hip pinning femur fracture status post fall. Management per Orthopedic surgery and primary service. No new acute cardiovascular abnormalities at this time. (3) Hypertension: Code(s): I10 - Essential (primary) hypertension Status: Acute Assessment and Plan: Stable on lisinopril 5 mg daily (4) Malignant neoplasm of unspecified part of right bronchus or lung: Code(s): C34.91 - Malignant neoplasm of unspecified part of right bronchus or lung Status: Acute Assessment and Plan: Per primary service. Subjective Date/time seen: DATE OF SERVICE: 04/14/22 15:31 Follow-up for preoperative risk assessment now postop left hip pinning Patient confused and answering questions awake lying supine in bed on his right side moving extremities spontaneously no obvious distress. Nursing reports he is confused but no other cardiovascular issues. Echo earlier today preserved LV systolic function with apical inferior hypokinesis although technically difficult study. Review of Systems Review of Systems: ROS unobtainable: Yes unobtainable due to mental status Exam Narrative: Elderly male lying supine in bed in his right side confused, not answering questions appropriately breathing comfortably appears mildly uncomfortable HENMT: Other: Limited examination mucosa slightly dry Eyes: Other: Anicteric Neck: Neck: no JVD Resp: Other: Diminished breath sounds. No rales or wheezes Cardio: Rate: regular rate Rhythm: regular rhythm Heart sounds: no murmurs Other: Well-healed median sternotomy scar GI: Other: Soft nontender nondistended positive bowel sounds Skin: General skin exam: normal color Other: Bandage over left hip op site Neuro: Other: Does not answer questions. Psych: Other: Agitated Objective Data Vital Signs Vital Signs: Vital Signs - 24 hr 04/13/22 15:50 04/13/22 16:00 04/13/22 15:59 Temperature 37.2 C 37.2 C Pulse Rate 90 92 90 Respiratory Rate 18 18 Blood Pressure 113/53 L 113/53 L Pulse Oximetry 95 95 Oxygen Delivery Oxygen Flow Rate 04/13/22 16:50 04/13/22 17:50 04/13/22 18:00 Temperature 37.3 C 37.3 C 37.3 C Pulse Rate 91 94 90 Respiratory Rate 18 18 18 Blood Pressure 130/55 L 129/83 130/84 Pulse Oximetry 96 96 97 Oxygen Delivery Oxygen Flow Rate 04/13/22 20:30 04/13/22 20:36 04/13/22 20:38 Temperature Pulse Rate 87 81 Respiratory Rate 22 H 20 Blood Pressure Pulse Oximetry 86 L Oxygen Delivery Room Air Oxygen Flow Rate 04/13/22 21:17 04/14/22 01:28 04/14/22 01:53 Temperature 36.5 C 37.2 C Pulse Rate 86 88 84 Respiratory Rate 18 16 22 H Blood Pressure 117/56 L 145/46 H Pulse
[2022-04-14] MEDS: MAGNESIUM OXIDE 400 MG TABLET PO (15:54)
[2022-04-14 16:50] LABS: Glucose Point of Care 167 mg/dl (65-105)
[2022-04-14] MEDS: INSULIN GLARGINE (*BKC) 100 UNITS/ML 9 UNITS SUB-Q (20:26)
[2022-04-14 21:00] LABS: Glucose Point of Care 178 mg/dl (65-105)
[2022-04-15] VITALS (16 sets, daily range): BP systolic 107–131; BP diastolic 54–100; PULSE 81–100; RESP 14–24; TEMP 36.4–36.9; O2SAT 95–99; BMI 10.0
[2022-04-15] MEDS: ALBUTEROL SULFATE NEB 2.5 MG/3 ML INH INHALATION ×3 (01:37→20:55)
[2022-04-15] MEDS: IPRATROPIUM BR 0.02% INH SOLN 0.5 MG/2.5 ML VIAL INHALATION ×3 (01:37→20:55)
[2022-04-15 05:08] LABS: Hematocrit 34.9 % (42.0-52.0); Hemoglobin 10.8 g/dL (14.0-18.0); Mean Corpuscular HGB Conc 30.9 g/dl (32-36); Mean Corpuscular Hemoglobin 28.9 pg (26-34); Mean Corpuscular Volume 93.3 fl (80-100); Platelet Count Result 271 k/mm3 (150-375); Red Blood Count 3.74 M/mm3 (4.6-6.20); Red Cell Distribution Width 15.4 % (11.5-14.5); White Blood Count 11.2 K/mm3 (4.5-10.0)
[2022-04-15 05:28] LABS: Alanine Aminotransferase 31 U/L (6-50); Albumin Level 2.8 g/dL (3.5-5.1); Alkaline Phosphatase 125 U/L (38-126); Anion Gap 12 mmol/L (8-16); Aspartate Amino Transferase 59 U/L (17-59); Bilirubin,Total 0.6 mg/dL (0.2-1.3); Blood Urea Nitrogen 12 mg/dL (9-20); Calcium 8.1 mg/dL (8.4-10.2); Carbon Dioxide 28 mmol/L (22-30); Chloride 101 mmol/L (98-107); Estimated CRCL calculation 60 ml/min; Estimated Glomerular Filt Rate > 60; Glucose 158 mg/dL (65-110); Magnesium 1.8 mg/dL (1.6-2.3); Potassium 3.6 mmol/L (3.4-5.0); Sodium 141 mmol/L (137-145)
[2022-04-15 08:00] LABS: Glucose Point of Care 140 mg/dl (65-105)
--- NOTE | 2022-04-15 09:40 | PM.PNORT ---
Progress Note: A&P Assessment and Plan (1) Closed subcapital fracture of neck of left femur: Qualifiers: Encounter type: subsequent encounter Fracture healing: with routine healing Qualified Code(s): S72.012D - Unspecified intracapsular fracture of left femur, subsequent encounter for closed fracture with routine healing Code(s): S72.012A - Unspecified intracapsular fracture of left femur, initial encounter for closed fracture Status: Acute Assessment and Plan: POD #2: Left Hip Pinning PT/OT as tolerated. WBAT. Walker. HIGH FALL RISK. Continue pain control. Ice hip. Protect skin. DVT prophylaxis. Arixtra x14 days. SCDs. Incentive Spirometry Use reviewed. Monitor Dressing. Change prior to discharge. Continue Mepilex silver. Okay to bath. Bowel Regimen. Dispo: SNF when medically cleared. (2) Dementia: Qualifiers: Dementia type: unspecified type Dementia severity: moderate Dementia behavioral or psychological symptom: with agitation Qualified Code(s): F03.B11 - Unspecified dementia, moderate, with agitation Code(s): F03.90 - Unspecified dementia, unspecified severity, without behavioral disturbance, psychotic disturbance, mood disturbance, and anxiety Status: Acute Assessment and Plan: Resides in memory care. Per care coordination, will need further assistance at SNF before return to memory care. Subjective Subjective Date/Time Seen: 04/15/22 09:40 Post Op day: 2 Interval history: POD #2: Left hip pinning Patient awake. Confused, baseline. Appears comfortable. Review of Systems Review of Systems: ROS unobtainable: Yes unobtainable due to mental status Exam Const: General: comfortable and no acute distress Resp: Effort & Inspection: normal respiratory effort Urinary Catheter: Urinary Catheter: patent and draining and urine clear Skin: Wounds: no wounds Other: Incision left hip c/d/i Extrem: Left lower extremity: hip/thigh Details: tenderness Location: of the hip Location: laterally, knee Details: normal to inspection, lower leg (Negative Anai's Sign ), ankle Details: normal to inspection and foot Details: normal capillary refill, toes with normal ROM and vascular exam Details: dorsalis pedis pulse present Psych: Other: Confused, dementia, pulling at lines. Objective Data Vital Signs Vital Signs: Vital Signs - 24 hr 04/14/22 09:58 04/14/22 10:59 04/14/22 10:00 Temperature 37.2 C Pulse Rate 86 87 87 Respiratory Rate 18 18 Blood Pressure 141/58 H Pulse Oximetry 92 92 Oxygen Delivery Nasal Cannula Oxygen Flow Rate 2 04/14/22 13:49 04/14/22 14:40 04/14/22 14:00 Temperature 37.2 C Pulse Rate 78 79 100 Respiratory Rate 20 22 H 18 Blood Pressure 148/56 H Pulse Oximetry Oxygen Delivery Oxygen Flow Rate 04/14/22 14:10 04/14/22 19:50 04/14/22 19:50 Temperature Pulse Rate 91 91 Respiratory Rate 24 H Blood Pressure Pulse Oximetry 92 96 Oxygen Delivery Nasal Cannula Oxygen Flow Rate 2 04/14/22 20:00 04/14/22 20:00 04/14/22 21:55 Temperature 36.7 C Pulse Rate 81 95 Respiratory Rate 24 H 20 Blood Pressure 136/71 Pulse Oximetry 96 99 Oxygen Delivery Oxygen Flow Rate 04/15/22 01:30 04/15/22 01:39 04/15/22 06:05 Temperature 36.9 C Pulse Rate 99 90 91 Respiratory Rate 24 H 24 H 18 Blood Pressure 128/54 L Pulse Oximetry 96 Oxygen Delivery Oxygen Flow Rate Intake/Output Intake/Output: Intake & Output 04/12/22 04/13/22 04/14/22 04/15/22 23:59 23:59 23:59 23:59 Intake Total 2300 2755 1549 0 Output Total 900 600 700 Balance 1400 2155 849 0 Meds/Results Medications: Active Medications Generic Name Dose Route Start Last Admin Trade Name Freq PRN Reason Stop Dose Admin Acetaminophen 650 mg 04/13/22 10:14 Acetaminophen 325 Mg Tablet PO Q6H PRN Mild Pain (1-3) or Fever Albuterol 2.5 mg 04/12/22 14:00 04/15
[2022-04-15] MEDS: polyethylene glycoL 3350 17 GM POWD.PACK PO (10:09)
[2022-04-15] MEDS: MAGNESIUM OXIDE 400 MG TABLET PO (10:09)
[2022-04-15] MEDS: TAMSULOSIN HCL 0.4 MG CAPSULE PO (10:09)
[2022-04-15] MEDS: METOPROLOL SUCCINATE EXT REL 25 MG TABCR PO (10:10)
[2022-04-15] MEDS: SENNA/DOCUSATE SODIUM TABLET 2 TAB PO ×2 (10:10→17:42)
[2022-04-15] MEDS: lisinopriL 5 MG TABLET PO (10:16)
[2022-04-15] MEDS: FERROUS SULFATE 324 MG TABLET PO ×2 (10:16→17:43)
[2022-04-15] MEDS: ASPIRIN 81 MG ENTERIC TABLET PO (10:16)
--- NOTE | 2022-04-15 11:05 | PM.IMPN ---
Progress Note: A&P Assessment and Plan (1) Closed subcapital fracture of neck of left femur: Qualifiers: Encounter type: subsequent encounter Fracture healing: with routine healing Qualified Code(s): S72.012D - Unspecified intracapsular fracture of left femur, subsequent encounter for closed fracture with routine healing Code(s): S72.012A - Unspecified intracapsular fracture of left femur, initial encounter for closed fracture Status: Acute Assessment and Plan: Fall at nursing facility resulting in left hip fracture Hip/Pelvis xray showed subcapital fracture of the left femoral neck Patient is postoperative day #2 left hip pinning Appreciate orthopedic surgery consultation and management Supportive care. Analgesics available as needed Continue PT/OT Fall precautions (2) Dementia: Qualifiers: Dementia behavioral or psychological symptom: with agitation Dementia severity: moderate Dementia type: unspecified type Qualified Code(s): F03.B11 - Unspecified dementia, moderate, with agitation Code(s): F03.90 - Unspecified dementia, unspecified severity, without behavioral disturbance, psychotic disturbance, mood disturbance, and anxiety Status: Acute Assessment and Plan: Patient is at his baseline mental status. Care to limit risk for delirium including maintaining day/night schedule, reorientation, limit narcotics (3) HERNANDEZ (acute kidney injury): Code(s): N17.9 - Acute kidney failure, unspecified Status: Acute Assessment and Plan: Resolved. Creatinine 1.4 on presentation. Patient was rehydrated with IV fluids and creatinine has remained stable. Continue to monitor renal function (4) Hypertension: Code(s): I10 - Essential (primary) hypertension Status: Acute Assessment and Plan: Blood pressures are stable. Continue home lisinopril and metoprolol monitor BP trends (5) Fall: Code(s): W19.XXXA - Unspecified fall, initial encounter Status: Acute Assessment and Plan: Ground level fall x [address] [facility]. Head CT negative for any intracranial findings. Patient unfortunately sustained hip fracture secondary to fall. Fall precautions implemented. Appreciate PT/OT (6) Diabetes: Code(s): E11.9 - Type 2 diabetes mellitus without complications Status: Acute Assessment and Plan: Random glucose elevated on presentation. A1c is 9.6. PMH does not indicate history of diabetes and patient is not on insulin or oral hypoglycemics. Continue Accu-Cheks, sliding scale insulin, hypoglycemic protocol. fasting glucose improved today with addition of low-dose Lantus. Continue to monitor glucose trends and adjust insulin as needed (7) Anemia: Code(s): D64.9 - Anemia, unspecified Status: Acute Assessment and Plan: Hemoglobin 7.7 preoperatively. Received 2 units pRBC per orthopedic surgery recommendations. Iron panel consistent with anemia of chronic disease. H&H remaining stable postoperatively. Continue to monitor. Stool occult blood test ordered, awaiting collection. (8) Electrolyte abnormality: Code(s): E87.8 - Other disorders of electrolyte and fluid balance, not elsewhere classified Status: Acute Assessment and Plan: Hypokalemia resolved with supplementation. Corrected calcium within normal limits. Mag 1.8 today. Continue 400 mg mag oxide daily. Monitor BMP Subjective Date/time seen: 04/15/22 11:05 Interval history: Date of service: 04/15/2022 Devan Bar is a 76 year old male with a history of CAD, lung cancer, hyperlipidemia, hypertension, dementia, chronic anemia, and BPH who is seen in follow up for left hip fracture s/p left hip pinning on 04/13/22. Patient not oriented and not able to provide any information. Review of Systems Review of Systems: ROS unobtainable: Yes unobtainable due to mental status Exam
[2022-04-15 12:10] LABS: Glucose Point of Care 138 mg/dl (65-105)
[2022-04-15 17:25] LABS: Glucose Point of Care 141 mg/dl (65-105)
[2022-04-15 20:43] LABS: Glucose Point of Care 141 mg/dl (65-105)
[2022-04-15] MEDS: INSULIN GLARGINE (*BKC) 100 UNITS/ML 9 UNITS SUB-Q (21:36)
[2022-04-16] VITALS (13 sets, daily range): BP systolic 125–139; BP diastolic 53–81; PULSE 77–90; RESP 16–20; TEMP 36.3–36.6; O2SAT 93–97
[2022-04-16 00:33] LABS: Add Urine Microscopic? YES; Appearance Urine Turbid (Clear); Bilirubin Urine 1+ (Negative); Blood Urine 3+ (Negative); Color Urine Brown (Yellow); Glucose Urine UA Trace mg/dL (Negative); Ketones Urine 1+ mg/dL (Negative); Leukocyte Esterase Ur Negative LEU/UL (Negative); Nitrate Urine Negative (Negative); Protein Urine 2+ mg/dL (Negative); Specific Grav Ur 1.025 (1.001-1.035)
[2022-04-16 00:37] LABS: Mucus Urine Rare /lpf; RBC Urine >75 /hpf (0-2)
[2022-04-16] MEDS: ALBUTEROL SULFATE NEB 2.5 MG/3 ML INH INHALATION ×2 (02:33→08:32)
[2022-04-16] MEDS: IPRATROPIUM BR 0.02% INH SOLN 0.5 MG/2.5 ML VIAL INHALATION ×2 (02:33→08:32)
[2022-04-16 05:19] LABS: Basophils Percent Auto 0.2 % (0.2-1.2); Eosinophils Percent Auto 0.1 % (0-4.4); Hematocrit 31.5 % (42.0-52.0); Immature Granulocyte Absolute 0.07 K/mm3 (0.00-0.031); Immature Granulocyte Percent A 0.7 % (0-0.5); Lymphocytes Absolute Auto 1.02 K/mm3 (0.9-3.2); Lymphocytes Percent Auto 9.7 % (18.3-44.2); Mean Corpuscular HGB Conc 31.7 g/dl (32-36); Mean Corpuscular Hemoglobin 27.6 pg (26-34); Mean Platelet Volume 10.1 fl (7.4-10.4); Monocytes Absolute Auto 0.9 K/mm3 (0.1-0.6); Monocytes Percent Auto 8.1 % (2.6-8.5); Neutrophils Absolute Auto 8.6 K/mm3 (1.3-6.7); Neutrophils Percent Auto 81.2 % (45.5-73.1); Platelet Count Result 275 k/mm3 (150-375); Red Blood Count 3.62 M/mm3 (4.6-6.20); Red Cell Distribution Width 15.3 % (11.5-14.5); White Blood Count 10.5 K/mm3 (4.5-10.0)
[2022-04-16 05:35] LABS: Anion Gap 7 mmol/L (8-16); Blood Urea Nitrogen 19 mg/dL (9-20); Calcium 8.1 mg/dL (8.4-10.2); Carbon Dioxide 31 mmol/L (22-30); Chloride 106 mmol/L (98-107); Estimated CRCL calculation 45 ml/min; Estimated Glomerular Filt Rate > 60; Glucose 150 mg/dL (65-110); Potassium 3.4 mmol/L (3.4-5.0); Sodium 144 mmol/L (137-145)
[2022-04-16 08:43] LABS: Glucose Point of Care 147 mg/dl (65-105)
--- NOTE | 2022-04-16 08:43 | PCRCNOTE ---
Pt was unable to finish 0800 tx, pt is restless and fighting tx, sitter in room.
[2022-04-16] MEDS: FONDAPARINUX SODIUM 2.5 MG/0.5 ML SYRINGE SUB-Q (09:07)
--- NOTE | 2022-04-16 09:28 | PCOTNOTE ---
Per RN, patient combative and not appropriate at this time to see for OT. Will continue plan of care as appropriate.
--- NOTE | 2022-04-16 10:42 | PC.NURSE ---
Patient lost IV access, was unable to administer AM IV meds and PO due to patient refusal. RN not comfortable to re-attempt IV access at this time due to patient being agitated and combative. Called BENJAMIN Ward to inform her of this, OK to let patient rest for a while and try again later.
[2022-04-16 12:14] LABS: Glucose Point of Care 132 mg/dl (65-105)
--- NOTE | 2022-04-16 13:05 | PM.IMPN ---
Progress Note: A&P Assessment and Plan (1) Closed subcapital fracture of neck of left femur: Qualifiers: Encounter type: subsequent encounter Fracture healing: with routine healing Qualified Code(s): S72.012D - Unspecified intracapsular fracture of left femur, subsequent encounter for closed fracture with routine healing Code(s): S72.012A - Unspecified intracapsular fracture of left femur, initial encounter for closed fracture Status: Acute Assessment and Plan: Fall at nursing facility resulting in left hip fracture Hip/Pelvis xray showed subcapital fracture of the left femoral neck Patient is postoperative day #3 left hip pinning Appreciate orthopedic surgery consultation and management Supportive care. Analgesics available as needed Continue PT/OT if patient able to participate Fall precautions (2) Dementia: Qualifiers: Dementia behavioral or psychological symptom: with agitation Dementia severity: moderate Dementia type: unspecified type Qualified Code(s): F03.B11 - Unspecified dementia, moderate, with agitation Code(s): F03.90 - Unspecified dementia, unspecified severity, without behavioral disturbance, psychotic disturbance, mood disturbance, and anxiety Status: Acute Assessment and Plan: Patient is reportedly at his baseline mental status, however appears more restless today. Care to limit risk for delirium including maintaining day/night schedule, reorientation, limit narcotics. Patient not tolerating PO intake/meds today and has no IV access. Nursing staff to reattempt IV and intro of PO meds later this afternoon. Call to patients family to discuss patients progress and goals of care, left a message and awaiting return call. (3) HERNANDEZ (acute kidney injury): Code(s): N17.9 - Acute kidney failure, unspecified Status: Acute Assessment and Plan: Resolved. Creatinine 1.4 on presentation. Patient was rehydrated with IV fluids and creatinine has remained stable. Continue to monitor renal function (4) Hypertension: Code(s): I10 - Essential (primary) hypertension Status: Acute Assessment and Plan: Blood pressures are stable. Continue home lisinopril and metoprolol when tolerating PO meds. Monitor BP trends (5) Fall: Code(s): W19.XXXA - Unspecified fall, initial encounter Status: Acute Assessment and Plan: Ground level fall x 2 at the [facility]. Head CT negative for any intracranial findings. Patient unfortunately sustained hip fracture secondary to fall. Fall precautions implemented. Appreciate PT/OT (6) Diabetes: Code(s): E11.9 - Type 2 diabetes mellitus without complications Status: Acute Assessment and Plan: Random glucose elevated on presentation. A1c is 9.6. PMH does not indicate history of diabetes and patient is not on insulin or oral hypoglycemics. Continue Accu-Cheks, sliding scale insulin, hypoglycemic protocol. fasting glucose improved today with addition of low-dose Lantus. Continue to monitor glucose trends and adjust insulin as needed (7) Anemia: Code(s): D64.9 - Anemia, unspecified Status: Acute Assessment and Plan: Hemoglobin 7.7 preoperatively. Received 2 units pRBC per orthopedic surgery recommendations. Iron panel consistent with anemia of chronic disease. H&H remaining stable postoperatively. Continue to monitor. Stool occult blood test ordered, awaiting collection. (8) Abnormal urinalysis: Code(s): R82.90 - Unspecified abnormal findings in urine Status: Acute Assessment and Plan: Repeat UA in light of elevated WBC, noted to brown turbid urine with >75 RBC and 10-15 WBC. Pt noted to have foul smelling urine. Empiric ceftriaxone ordered, however pt does not have IV access at this time. PO option not feasible as pt not tolerating. Can hold for now while working to obtain IV access and awaiting urine
--- NOTE | 2022-04-16 15:51 | PCPTNOTE ---
The patient treatment was not able to be completed today. Patient agitated in the A.M. and did not participate in therapy P.M.. Will plan to continue treatment per plan of care.
--- NOTE | 2022-04-16 17:07 | PM.PNORT ---
Progress Note: A&P Assessment and Plan (1) Closed subcapital fracture of neck of left femur: Qualifiers: Encounter type: subsequent encounter Fracture healing: with routine healing Qualified Code(s): S72.012D - Unspecified intracapsular fracture of left femur, subsequent encounter for closed fracture with routine healing Code(s): S72.012A - Unspecified intracapsular fracture of left femur, initial encounter for closed fracture Status: Acute Assessment and Plan: Postoperative day 3 left hip pinning. Difficulty with care secondary to dementia and agitation progress activity when able to tolerate. Continue with medical care in the interim. Subjective Subjective Date/Time Seen: 04/16/22 17:07 Objective Data Vital Signs Vital Signs: Vital Signs - 24 hr 04/15/22 20:00 04/15/22 20:55 04/15/22 21:08 Temperature Pulse Rate 83 84 Respiratory Rate 16 16 Blood Pressure Pulse Oximetry 99 Oxygen Delivery Nasal Cannula Oxygen Flow Rate 2 04/15/22 21:12 04/15/22 23:01 04/16/22 02:33 Temperature 97.6 F Pulse Rate 89 86 Respiratory Rate 18 16 Blood Pressure 113/63 Pulse Oximetry 99 96 Oxygen Delivery Nasal Cannula Oxygen Flow Rate 2 04/16/22 06:58 04/16/22 06:59 04/16/22 07:00 Temperature 97.3 F L 97.3 F L 97.5 F L Pulse Rate 77 77 79 Respiratory Rate 18 18 18 Blood Pressure 134/67 134/67 139/78 Pulse Oximetry 97 97 97 Oxygen Delivery Oxygen Flow Rate 04/16/22 08:32 04/16/22 08:40 04/16/22 08:41 Temperature Pulse Rate 90 87 90 Respiratory Rate 16 16 16 Blood Pressure Pulse Oximetry 95 Oxygen Delivery Nasal Cannula Oxygen Flow Rate 1 04/16/22 08:00 04/16/22 14:32 04/16/22 15:02 Temperature 97.4 F L Pulse Rate 80 Respiratory Rate 18 Blood Pressure 133/63 Pulse Oximetry 96 97 96 Oxygen Delivery Nasal Cannula Room Air Oxygen Flow Rate 1 Intake/Output Intake/Output: Intake & Output 04/13/22 04/14/22 04/15/22 04/16/22 23:59 23:59 23:59 23:59 Intake Total 2755 1549 0 0 Output Total 600 700 250 Balance 2155 849 0 -250 Meds/Results Medications: Active Medications Generic Name Dose Route Start Last Admin Trade Name Freq PRN Reason Stop Dose Admin Acetaminophen 650 mg 04/13/22 10:14 Acetaminophen 325 Mg Tablet PO Q6H PRN Mild Pain (1-3) or Fever Albuterol 2.5 mg 04/16/22 14:59 Albuterol Sulfate Neb 2.5 Mg/3 Ml Inh INHALATION Q6HRT PRN Shortness Of Breath Aspirin 81 mg 04/12/22 09:00 04/16/22 11:40 Aspirin 81 Mg Enteric Tablet PO Not Given DAILY GHISLAINE Dextrose 12.5 gm 04/12/22 07:35 Dextrose 50% 25 Gm/50 Ml Syringe IV PUSH PRN PRN Hypoglycemia Protocol Ferrous Sulfate 324 mg 04/13/22 08:00 04/16/22 11:39 Ferrous Sulfate 324 Mg Tablet PO Not Given BIDWM GHISLAINE Fondaparinux 2.5 mg 04/16/22 09:00 04/16/22 09:07 Fondaparinux Sodium 2.5 Mg/0.5 Ml Syringe SUB-Q 2.5 mg DAILY GHISLAINE Administration Glucagon 1 mg 04/12/22 07:35 Glucagon For Inj 1 Mg Vial IM PRN PRN Hypoglycemia Protocol Glucose 15 gm 04/12/22 07:35 Glucose Oral Gel 15 Gm Of Glucse In 37.5 Gm Tube PO PRN PRN Hypoglycemia Protocol Dextrose 1,000 mls @ 100 mls/hr 04/12/22 07:35 Dextrose 5% 1,000 Ml IVPB PRN PRN Hypoglycemia Protocol Ceftriaxone Sodium/Dextrose 1 gm in 50 mls @ 100 mls/hr 04/16/22 09:00 04/16/22 16:02 Rocephin 1 Gm/D5w 50 Ml IVPB Not Given Q24H [facility] Insulin Aspart 3 - 6 units 04/12/22 08:00 04/16/22 12:17 Insulin Aspart (*Bkc) 100 Units/Ml SUB-Q Not Given TIDWM [facility] Protocol Insulin Glargine 9 units 04/14/22 21:00 04/15/22 21:36 Insulin Glargine (*Bkc) 100 Units/Ml 0.15 units/kg (9 units) 9 units SUB-Q Administration HS GHISLAINE Ipratropium [place] 0.5 mg 04/16/22 15:01 Ipratropium Br 0.02% Inh Soln 0.5 Mg/2.5 Ml Vial INHALATION Q6
--- NOTE | 2022-04-16 17:42 | PC.NURSE ---
Still unable to gain IV access due to patient becoming aggressive upon touch. Called [facility] - holding abx for now until urine culture comes back. Patient still refusing PO meds. Attempted to offer pills in pudding and regular food, patient swats the spoon away. Patient will not take drinks, patient sitter attempted to give apple juice and patient grabbed sitter's finger and bent it backwards.
[2022-04-16 17:48] LABS: Glucose Point of Care 132 mg/dl (65-105)
[2022-04-16 20:36] LABS: Glucose Point of Care 129 mg/dl (65-105)
[2022-04-16] MEDS: INSULIN GLARGINE (*BKC) 100 UNITS/ML 9 UNITS SUB-Q (21:39)
[2022-04-17 05:11] LABS: Hematocrit 34.3 % (42.0-52.0); Hemoglobin 10.5 g/dL (14.0-18.0); Mean Corpuscular HGB Conc 30.6 g/dl (32-36); Mean Corpuscular Hemoglobin 27.6 pg (26-34); Mean Platelet Volume 10.9 fl (7.4-10.4); Platelet Count Result 310 k/mm3 (150-375); Red Blood Count 3.81 M/mm3 (4.6-6.20); Red Cell Distribution Width 15.7 % (11.5-14.5); White Blood Count 10.1 K/mm3 (4.5-10.0)
[2022-04-17 05:32] LABS: Anion Gap 11 mmol/L (8-16); Blood Urea Nitrogen 25 mg/dL (9-20); Calcium 8.3 mg/dL (8.4-10.2); Carbon Dioxide 31 mmol/L (22-30); Chloride 106 mmol/L (98-107); Estimated CRCL calculation 41 ml/min; Estimated Glomerular Filt Rate 59; Glucose 99 mg/dL (65-110); Magnesium 2.2 mg/dL (1.6-2.3); Potassium 4.1 mmol/L (3.4-5.0); Sodium 148 mmol/L (137-145)
[2022-04-17 05:45] VITALS: BP 146/73; PULSE 86; RESP 16; TEMP 37.1; O2SAT 97
[2022-04-17 08:44] LABS: Glucose Point of Care 89 mg/dl (65-105)
--- NOTE | 2022-04-17 09:31 | PM.PNORT ---
Progress Note: A&P Assessment and Plan (1) Closed subcapital fracture of neck of left femur: Qualifiers: Encounter type: subsequent encounter Fracture healing: with routine healing Qualified Code(s): S72.012D - Unspecified intracapsular fracture of left femur, subsequent encounter for closed fracture with routine healing Code(s): S72.012A - Unspecified intracapsular fracture of left femur, initial encounter for closed fracture Status: Acute Assessment and Plan: POD #4: Left Hip Pinning PT/OT as tolerated. Difficulty given dimensia. WBAT. Walker. HIGH FALL RISK. Continue pain control. Ice hip. Protect skin. DVT prophylaxis. Arixtra total of 14 days. Will need prescription upon d/c. SCDs. Incentive Spirometry Use reviewed. Monitor Dressing. Change prior to discharge. Continue Mepilex silver. Okay to bath. Bowel Regimen. Dispo: SNF when medically cleared. (2) Dementia: Qualifiers: Dementia type: unspecified type Dementia severity: moderate Dementia behavioral or psychological symptom: with agitation Qualified Code(s): F03.B11 - Unspecified dementia, moderate, with agitation Code(s): F03.90 - Unspecified dementia, unspecified severity, without behavioral disturbance, psychotic disturbance, mood disturbance, and anxiety Status: Acute Assessment and Plan: Resides in memory care. Per care coordination, will need further assistance at SNF before return to memory care. Subjective Subjective Date/Time Seen: 04/17/22 09:31 Post Op day: 2 Interval history: POD #4: Left hip pinning Patient resting comfortably, wakes to voice. Dementia, baseline. Review of Systems Review of Systems: ROS unobtainable: Yes unobtainable due to mental status Exam Const: General: comfortable and no acute distress Resp: Effort & Inspection: normal respiratory effort Urinary Catheter: Urinary Catheter: patent and draining and urine clear Skin: Wounds: no wounds Other: Incision left hip c/d/i Extrem: Left lower extremity: hip/thigh Details: tenderness Location: of the hip Location: laterally, knee Details: normal to inspection, lower leg (Negative Anai's Sign ), ankle Details: normal to inspection and foot Details: normal capillary refill, toes with normal ROM and vascular exam Details: dorsalis pedis pulse present Psych: Other: Confused, dementia, pulling at lines. Objective Data Vital Signs Vital Signs: Vital Signs - 24 hr 04/16/22 14:32 04/16/22 15:02 04/16/22 20:00 Temperature 36.3 C L Pulse Rate 80 Respiratory Rate 18 Blood Pressure 133/63 Pulse Oximetry 97 96 Oxygen Delivery Room Air Room Air 04/16/22 19:46 04/16/22 21:03 04/16/22 19:47 Temperature 36.6 C Pulse Rate 83 Respiratory Rate 20 Blood Pressure 125/53 L 125/53 L 130/81 Pulse Oximetry 93 Oxygen Delivery 04/17/22 05:45 Temperature 37.1 C Pulse Rate 86 Respiratory Rate 16 Blood Pressure 146/73 H Pulse Oximetry 97 Oxygen Delivery Intake/Output Intake/Output: Intake & Output 04/14/22 04/15/22 04/16/22 04/17/22 23:59 23:59 23:59 23:59 Intake Total 1549 0 0 0 Output Total 700 250 Balance 849 0 -250 0 Meds/Results Medications: Active Medications Generic Name Dose Route Start Last Admin Trade Name Freq PRN Reason Stop Dose Admin Acetaminophen 650 mg 04/13/22 10:14 Acetaminophen 325 Mg Tablet PO Q6H PRN Mild Pain (1-3) or Fever Albuterol 2.5 mg 04/16/22 14:59 Albuterol Sulfate Neb 2.5 Mg/3 Ml Inh INHALATION Q6HRT PRN Shortness Of Breath Aspirin 81 mg 04/12/22 09:00 04/16/22 11:40 Aspirin 81 Mg Enteric Tablet PO Not Given DAILY GHISLAINE Dextrose 12.5 gm 04/12/22 07:35 Dextrose 50% 25 Gm/50 Ml Syringe IV PUSH PRN PRN Hypoglycemia Protocol Ferrous Sulfate 324 mg 04/13/22 08:00 04/16/22 17:42 Ferrous Sulfate 324 Mg Tablet PO Not Given BIDWM GHISLAINE Fondaparinux 2.5 mg 1
[2022-04-17] MEDS: TAMSULOSIN HCL 0.4 MG CAPSULE PO (09:53)
[2022-04-17] MEDS: ASPIRIN 81 MG ENTERIC TABLET PO (09:53)
[2022-04-17] MEDS: FERROUS SULFATE 324 MG TABLET PO ×2 (09:53→18:33)
[2022-04-17] MEDS: SENNA/DOCUSATE SODIUM TABLET 2 TAB PO ×2 (09:53→18:33)
[2022-04-17 09:54] VITALS: PULSE 85
[2022-04-17] MEDS: METOPROLOL SUCCINATE EXT REL 25 MG TABCR PO (09:54)
[2022-04-17] MEDS: lisinopriL 5 MG TABLET PO (09:54)
[2022-04-17] MEDS: MAGNESIUM OXIDE 400 MG TABLET PO (09:54)
[2022-04-17] MEDS: FONDAPARINUX SODIUM 2.5 MG/0.5 ML SYRINGE SUB-Q (09:55)
[2022-04-17 10:00] VITALS: PULSE 88; RESP 20; O2SAT 100
[2022-04-17 12:35] LABS: Glucose Point of Care 95 mg/dl (65-105)
[2022-04-17 15:17] VITALS: BP 124/67; PULSE 88; RESP 20; TEMP 36.4; O2SAT 100
--- NOTE | 2022-04-17 15:27 | PM.IMPN ---
Progress Note: A&P Assessment and Plan (1) Closed subcapital fracture of neck of left femur: Qualifiers: Encounter type: subsequent encounter Fracture healing: with routine healing Qualified Code(s): S72.012D - Unspecified intracapsular fracture of left femur, subsequent encounter for closed fracture with routine healing Code(s): S72.012A - Unspecified intracapsular fracture of left femur, initial encounter for closed fracture Status: Acute Assessment and Plan: Fall at nursing facility resulting in left hip fracture Hip/Pelvis xray showed subcapital fracture of the left femoral neck Patient is postoperative day #4 left hip pinning Appreciate orthopedic surgery consultation and management Supportive care. Analgesics available as needed Continue PT/OT if patient able to participate Fall precautions (2) Dementia: Qualifiers: Dementia behavioral or psychological symptom: with agitation Dementia severity: moderate Dementia type: unspecified type Qualified Code(s): F03.B11 - Unspecified dementia, moderate, with agitation Code(s): F03.90 - Unspecified dementia, unspecified severity, without behavioral disturbance, psychotic disturbance, mood disturbance, and anxiety Status: Acute Assessment and Plan: Patient is reportedly at his baseline mental status. Care to limit risk for delirium including maintaining day/night schedule, reorientation, limit narcotics. Patient still with very poor PO intake but is tolerating PO meds today. No IV access due to frequent removal by pt. Discussed goals of care with Audrey brenner. Continue to monitor pt, consider hospice meeting if continued decline in PO intake and/or mental status. (3) HERNANDEZ (acute kidney injury): Code(s): N17.9 - Acute kidney failure, unspecified Status: Acute Assessment and Plan: Resolved. Creatinine 1.4 on presentation. Patient was rehydrated with IV fluids and creatinine has remained stable. Continue to monitor renal function (4) Hypertension: Code(s): I10 - Essential (primary) hypertension Status: Acute Assessment and Plan: Blood pressures are stable. Continue home lisinopril and metoprolol. Monitor BP trends (5) Fall: Code(s): W19.XXXA - Unspecified fall, initial encounter Status: Acute Assessment and Plan: Ground level fall x 2 at the [facility] [facility]. Head CT negative for any intracranial findings. Patient unfortunately sustained hip fracture secondary to fall. Fall precautions implemented. Appreciate PT/OT (6) Diabetes: Code(s): E11.9 - Type 2 diabetes mellitus without complications Status: Acute Assessment and Plan: Random glucose elevated on presentation. A1c is 9.6. PMH does not indicate history of diabetes and patient is not on insulin or oral hypoglycemics. Continue Accu-Cheks, sliding scale insulin, hypoglycemic protocol. Low dose lantus initiated due to elevated glucose, however will hold at this time due to decreased PO intake. Continue to monitor glucose trends and adjust insulin as needed (7) Anemia: Code(s): D64.9 - Anemia, unspecified Status: Acute Assessment and Plan: Hemoglobin 7.7 preoperatively. Received 2 units pRBC per orthopedic surgery recommendations. Iron panel consistent with anemia of chronic disease. H&H remaining stable postoperatively. Continue to monitor. Stool occult blood test ordered, awaiting collection. (8) Abnormal urinalysis: Code(s): R82.90 - Unspecified abnormal findings in urine Status: Acute Assessment and Plan: UA repeated on 04/15 in light of elevated WBC, noted to have brown turbid urine with >75 RBC and 10-15 WBC. Urine culture negative. Blood likely due to trauma from cath. No need for further treatment. Subjective Date/time seen: 04/17/22 15:27 Interval history: Date of service: 04/17/2022 Devan Bar
[2022-04-17 17:50] LABS: Glucose Point of Care 133 mg/dl (65-105)
[2022-04-17 19:18] VITALS: BP 141/60; PULSE 85; RESP 17; TEMP 36.6; O2SAT 97
[2022-04-17 20:00] VITALS: PULSE 85; RESP 17; O2SAT 97
[2022-04-18 03:13] VITALS: BP 108/81; PULSE 105; RESP 18; TEMP 36.3; O2SAT 96
[2022-04-18 05:06] LABS: Hemoglobin 11.4 g/dL (14.0-18.0); Mean Corpuscular HGB Conc 30.8 g/dl (32-36); Mean Corpuscular Hemoglobin 27.9 pg (26-34); Mean Corpuscular Volume 90.7 fl (80-100); Mean Platelet Volume 10.6 fl (7.4-10.4); Platelet Count Result 294 k/mm3 (150-375); Red Blood Count 4.08 M/mm3 (4.6-6.20); Red Cell Distribution Width 15.6 % (11.5-14.5); White Blood Count 8.9 K/mm3 (4.5-10.0)
[2022-04-18 05:19] LABS: Anion Gap 15 mmol/L (8-16); Blood Urea Nitrogen 31 mg/dL (9-20); Calcium 8.3 mg/dL (8.4-10.2); Carbon Dioxide 28 mmol/L (22-30); Chloride 107 mmol/L (98-107); Estimated CRCL calculation 36 ml/min; Estimated Glomerular Filt Rate 49; Glucose 163 mg/dL (65-110); Potassium 3.4 mmol/L (3.4-5.0); Sodium 150 mmol/L (137-145)
[2022-04-18 08:20] LABS: Glucose Point of Care 152 mg/dl (65-105)
[2022-04-18] MEDS: TAMSULOSIN HCL 0.4 MG CAPSULE PO (08:59)
[2022-04-18] MEDS: SENNA/DOCUSATE SODIUM TABLET 2 TAB PO (08:59)
[2022-04-18] MEDS: FERROUS SULFATE 324 MG TABLET PO (08:59)
[2022-04-18 09:00] VITALS: PULSE 86
[2022-04-18] MEDS: ASPIRIN 81 MG ENTERIC TABLET PO (09:00)
[2022-04-18] MEDS: METOPROLOL SUCCINATE EXT REL 25 MG TABCR PO (09:00)
[2022-04-18] MEDS: lisinopriL 5 MG TABLET PO (09:00)
[2022-04-18] MEDS: MAGNESIUM OXIDE 400 MG TABLET PO (09:00)
[2022-04-18] MEDS: FONDAPARINUX SODIUM 2.5 MG/0.5 ML SYRINGE SUB-Q (09:01)
--- NOTE | 2022-04-18 09:14 | PCOTNOTE ---
Patient unarousable at time OT tried to see patient this AM. Will attempt again later to see patient if appropriate for OT.
[2022-04-18 10:52] VITALS: BMI 22.1
[2022-04-18 12:50] LABS: Glucose Point of Care 256 mg/dl (65-105)
[2022-04-18] MEDS: INSULIN ASPART (*BKC) 100 UNITS/ML SUB-Q (13:05)
--- NOTE | 2022-04-18 13:20 | PM.IMPN ---
Progress Note: A&P Assessment and Plan (1) Closed subcapital fracture of neck of left femur: Qualifiers: Encounter type: subsequent encounter Fracture healing: with routine healing Qualified Code(s): S72.012D - Unspecified intracapsular fracture of left femur, subsequent encounter for closed fracture with routine healing Code(s): S72.012A - Unspecified intracapsular fracture of left femur, initial encounter for closed fracture Status: Acute Assessment and Plan: Fall at nursing facility resulting in left hip fracture Hip/Pelvis xray showed subcapital fracture of the left femoral neck Patient is postoperative day #4 left hip pinning Appreciate orthopedic surgery consultation and management Supportive care. Analgesics available as needed Continue PT/OT if patient able to participate Fall precautions (2) Dementia: Qualifiers: Dementia type: unspecified type Dementia severity: moderate Dementia behavioral or psychological symptom: with agitation Qualified Code(s): F03.B11 - Unspecified dementia, moderate, with agitation Code(s): F03.90 - Unspecified dementia, unspecified severity, without behavioral disturbance, psychotic disturbance, mood disturbance, and anxiety Status: Acute Assessment and Plan: Patient is reportedly at his baseline mental status. Care to limit risk for delirium including maintaining day/night schedule, reorientation, limit narcotics. Patient still with very poor PO intake but is tolerating PO meds today. No IV access due to frequent removal by pt. Discussed goals of care with Audrey brenner. Continue to monitor pt, consider hospice meeting if continued decline in PO intake and/or mental status. (3) HERNANDEZ (acute kidney injury): Code(s): N17.9 - Acute kidney failure, unspecified Status: Acute Assessment and Plan: Resolved. Creatinine 1.4 on presentation. Patient was rehydrated with IV fluids and creatinine has remained stable. Continue to monitor renal function (4) Hypertension: Code(s): I10 - Essential (primary) hypertension Status: Acute Assessment and Plan: Blood pressures are stable. Continue home lisinopril and metoprolol. Monitor BP trends (5) Fall: Code(s): W19.XXXA - Unspecified fall, initial encounter Status: Acute Assessment and Plan: Ground level fall x 2 at the [facility]. Head CT negative for any intracranial findings. Patient unfortunately sustained hip fracture secondary to fall. Fall precautions implemented. Appreciate PT/OT (6) Diabetes: Code(s): E11.9 - Type 2 diabetes mellitus without complications Status: Acute Assessment and Plan: Random glucose elevated on presentation. A1c is 9.6. PMH does not indicate history of diabetes and patient is not on insulin or oral hypoglycemics. Continue Accu-Cheks, sliding scale insulin, hypoglycemic protocol. Low dose lantus initiated due to elevated glucose, however will hold at this time due to decreased PO intake. Continue to monitor glucose trends and adjust insulin as needed (7) Anemia: Code(s): D64.9 - Anemia, unspecified Status: Acute Assessment and Plan: Hemoglobin 7.7 preoperatively. Received 2 units pRBC per orthopedic surgery recommendations. Iron panel consistent with anemia of chronic disease. H&H remaining stable postoperatively. Continue to monitor. Stool occult blood test ordered, awaiting collection. (8) Abnormal urinalysis: Code(s): R82.90 - Unspecified abnormal findings in urine Status: Acute Assessment and Plan: UA repeated on 04/15 in light of elevated WBC, noted to have brown turbid urine with >75 RBC and 10-15 WBC. Urine culture negative. Blood likely due to trauma from cath. No need for further treatment. Subjective Date/time seen: 04/18/22 13:20 Interval history: Date of service: 04/17/2022 Devan Bar
[2022-04-18 14:00] VITALS: BP 138/74; PULSE 95; RESP 18; TEMP 36.4; O2SAT 96
[2022-04-18 17:12] LABS: Glucose Point of Care 114 mg/dl (65-105)
[2022-04-18] MEDS: DEXTROSE 5% 1,000 ML 1,000 ML 75 ML IV CONT (17:21)
[2022-04-18 19:29] VITALS: BP 138/58; PULSE 84; RESP 20; TEMP 36.6; O2SAT 95
[2022-04-18 21:11] LABS: Glucose Point of Care 177 mg/dl (65-105)
[2022-04-19 03:35] VITALS: BP 116/79; PULSE 61; RESP 18; TEMP 36.6; O2SAT 100
[2022-04-19 07:48] LABS: Anion Gap 9 mmol/L (8-16); Blood Urea Nitrogen 31 mg/dL (9-20); Calcium 8.1 mg/dL (8.4-10.2); Carbon Dioxide 31 mmol/L (22-30); Chloride 107 mmol/L (98-107); Estimated CRCL calculation 36 ml/min; Estimated Glomerular Filt Rate 49; Glucose 242 mg/dL (65-110); Potassium 3.7 mmol/L (3.4-5.0); Sodium 147 mmol/L (137-145)
[2022-04-19 09:15] LABS: Glucose Point of Care 204 mg/dl (65-105)
--- NOTE | 2022-04-19 09:23 | PCPTNOTE ---
The treatment was not completed this AM due to patient being unable to arouse patient. Will continue per PT plan of care.
[2022-04-19] MEDS: INSULIN ASPART (*BKC) 100 UNITS/ML SUB-Q ×2 (09:24→17:34)
[2022-04-19] MEDS: FONDAPARINUX SODIUM 2.5 MG/0.5 ML SYRINGE SUB-Q (09:24)
--- NOTE | 2022-04-19 10:43 | PC.NURSE ---
Patient not swallowing any PO intake, attempted meds in applesauce but RN not comfortable proceeding d/t risk of aspiration. MD Reina aware, recommending swallow study on Thursday
[2022-04-19] MEDS: DEXTROSE 5% 1,000 ML 1,000 ML 75 ML IV CONT (11:03)
[2022-04-19 12:23] LABS: Glucose Point of Care 168 mg/dl (65-105)
--- NOTE | 2022-04-19 13:06 | PCOTNOTE ---
Attempted to see pt for occupational therapy tx this PM. Despite verbal and tactile cueing pt is unable to be aroused and will only garble some words but will not open his eyes. When asked pt about completing functional ambulation, pt states NO . Pt's family, sitter, and RN all attempted to have pt wake up for participation in therapy however, was unsuccessful. RN was present during therapy attempt and states he has been very groggy today. Will continue per poc duration/frequency tomorrow.
--- NOTE | 2022-04-19 13:26 | PCPTNOTE ---
Treatment unable to be completed due to patient still groggy and unable to wake up. Will continue per PT plan of care.
[2022-04-19 14:16] VITALS: BP 166/74; PULSE 74; RESP 16; TEMP 36.2; O2SAT 99
--- NOTE | 2022-04-19 14:27 | PM.IMPN ---
Progress Note: A&P Assessment and Plan (1) Closed subcapital fracture of neck of left femur: Qualifiers: Encounter type: subsequent encounter Fracture healing: with routine healing Qualified Code(s): S72.012D - Unspecified intracapsular fracture of left femur, subsequent encounter for closed fracture with routine healing Code(s): S72.012A - Unspecified intracapsular fracture of left femur, initial encounter for closed fracture Status: Acute Assessment and Plan: Fall at nursing facility resulting in left hip fracture Hip/Pelvis xray showed subcapital fracture of the left femoral neck Patient is postoperative day #4 left hip pinning Appreciate orthopedic surgery consultation and management Supportive care. Analgesics available as needed Continue PT/OT if patient able to participate Fall precautions (2) Dementia: Qualifiers: Dementia type: unspecified type Dementia severity: moderate Dementia behavioral or psychological symptom: with agitation Qualified Code(s): F03.B11 - Unspecified dementia, moderate, with agitation Code(s): F03.90 - Unspecified dementia, unspecified severity, without behavioral disturbance, psychotic disturbance, mood disturbance, and anxiety Status: Acute Assessment and Plan: Patient is reportedly at his baseline mental status. Care to limit risk for delirium including maintaining day/night schedule, reorientation, limit narcotics. Patient still with very poor PO intake but is tolerating PO meds today. No IV access due to frequent removal by pt. Discussed goals of care with Audrey brenner. Continue to monitor pt, consider hospice meeting if continued decline in PO intake and/or mental status. (3) HERNANDEZ (acute kidney injury): Code(s): N17.9 - Acute kidney failure, unspecified Status: Acute Assessment and Plan: Resolved. Creatinine 1.4 on presentation. Patient was rehydrated with IV fluids and creatinine has remained stable. Continue to monitor renal function (4) Hypertension: Code(s): I10 - Essential (primary) hypertension Status: Acute Assessment and Plan: Blood pressures are stable. Continue home lisinopril and metoprolol. Monitor BP trends (5) Fall: Code(s): W19.XXXA - Unspecified fall, initial encounter Status: Acute Assessment and Plan: Ground level fall x 2 at the [facility]. Head CT negative for any intracranial findings. Patient unfortunately sustained hip fracture secondary to fall. Fall precautions implemented. Appreciate PT/OT (6) Diabetes: Code(s): E11.9 - Type 2 diabetes mellitus without complications Status: Acute Assessment and Plan: Random glucose elevated on presentation. A1c is 9.6. PMH does not indicate history of diabetes and patient is not on insulin or oral hypoglycemics. Continue Accu-Cheks, sliding scale insulin, hypoglycemic protocol. Low dose lantus initiated due to elevated glucose, however will hold at this time due to decreased PO intake. Continue to monitor glucose trends and adjust insulin as needed (7) Anemia: Code(s): D64.9 - Anemia, unspecified Status: Acute Assessment and Plan: Hemoglobin 7.7 preoperatively. Received 2 units pRBC per orthopedic surgery recommendations. Iron panel consistent with anemia of chronic disease. H&H remaining stable postoperatively. Continue to monitor. Stool occult blood test ordered, awaiting collection. (8) Abnormal urinalysis: Code(s): R82.90 - Unspecified abnormal findings in urine Status: Acute Assessment and Plan: UA repeated on 04/15 in light of elevated WBC, noted to have brown turbid urine with >75 RBC and 10-15 WBC. Urine culture negative. Blood likely due to trauma from cath. No need for further treatment. Subjective Date/time seen: 04/19/22 14:27 Patient was seen during the rounds today. patient calorie intake is
[2022-04-19 17:20] LABS: Glucose Point of Care 201 mg/dl (65-105)
[2022-04-19 19:27] VITALS: BP 123/84; PULSE 80; RESP 18; TEMP 36.2; O2SAT 97
[2022-04-19] MEDS: HEPARIN SODIUM 5,000 UNITS/ML VIAL 5000 UNITS SUB-Q (20:33)
[2022-04-19 20:37] LABS: Glucose Point of Care 171 mg/dl (65-105)
[2022-04-20] MEDS: DEXTROSE 5% 1,000 ML 1,000 ML 75 ML IV CONT (01:30)
[2022-04-20 03:57] VITALS: BP 118/58; PULSE 78; RESP 18; TEMP 36.3; O2SAT 96
[2022-04-20 05:40] LABS: Basophils Percent Auto 0.2 % (0.2-1.2); Eosinophils Percent Auto 0.1 % (0-4.4); Hematocrit 33.1 % (42.0-52.0); Hemoglobin 10.4 g/dL (14.0-18.0); Immature Granulocyte Absolute 0.04 K/mm3 (0.00-0.031); Immature Granulocyte Percent A 0.5 % (0-0.5); Lymphocytes Absolute Auto 1.35 K/mm3 (0.9-3.2); Lymphocytes Percent Auto 15.4 % (18.3-44.2); Mean Corpuscular HGB Conc 31.4 g/dl (32-36); Mean Corpuscular Hemoglobin 27.5 pg (26-34); Mean Corpuscular Volume 87.6 fl (80-100); Mean Platelet Volume 10.7 fl (7.4-10.4); Monocytes Absolute Auto 0.6 K/mm3 (0.1-0.6); Monocytes Percent Auto 7.1 % (2.6-8.5); Neutrophils Absolute Auto 6.7 K/mm3 (1.3-6.7); Neutrophils Percent Auto 76.7 % (45.5-73.1); Platelet Count Result 293 k/mm3 (150-375); Red Blood Count 3.78 M/mm3 (4.6-6.20); Red Cell Distribution Width 15.5 % (11.5-14.5); White Blood Count 8.8 K/mm3 (4.5-10.0)
[2022-04-20 05:50] LABS: Alanine Aminotransferase 27 U/L (6-50); Albumin Level 2.8 g/dL (3.5-5.1); Alkaline Phosphatase 124 U/L (38-126); Anion Gap 7 mmol/L (8-16); Aspartate Amino Transferase 41 U/L (17-59); Blood Urea Nitrogen 28 mg/dL (9-20); Calcium 7.9 mg/dL (8.4-10.2); Carbon Dioxide 30 mmol/L (22-30); Chloride 104 mmol/L (98-107); Estimated CRCL calculation 30 ml/min; Estimated Glomerular Filt Rate 39; Glucose 288 mg/dL (65-110); Potassium 3.8 mmol/L (3.4-5.0); Sodium 141 mmol/L (137-145)
[2022-04-20 08:56] LABS: Glucose Point of Care 297 mg/dl (65-105)
[2022-04-20] MEDS: INSULIN ASPART (*BKC) 100 UNITS/ML SUB-Q ×2 (09:24→12:58)
--- NOTE | 2022-04-20 11:56 | PCOTNOTE ---
Attempted to see pt for occupational therapy treatment this A.M. Therapist attempted to arouse pt with sternal and verbal cueing, however, pt would not open his eyes and only garbled some phrases. Due to decrease alertness and cognition, pt is not appropriate for therapy treatment at this time. RN was made aware of pt current progress level and him having difficulty being alert for increase participation. Will continue per POC duration/frequency tomorrow.
[2022-04-20 12:28] LABS: Glucose Point of Care 248 mg/dl (65-105)
--- NOTE | 2022-04-20 12:48 | PCPTNOTE ---
Attempted to see patient for therapy. Patient is inappropriate due to decreased cognition and alertness. Patient did not open his eyes, although did attempt to speak, however unable to understand patient at all. Spoke with RN regarding patient's decline as well.
--- NOTE | 2022-04-20 15:18 | PM.IMPN ---
Progress Note: A&P Assessment and Plan (1) Closed subcapital fracture of neck of left femur: Qualifiers: Encounter type: subsequent encounter Fracture healing: with routine healing Qualified Code(s): S72.012D - Unspecified intracapsular fracture of left femur, subsequent encounter for closed fracture with routine healing Code(s): S72.012A - Unspecified intracapsular fracture of left femur, initial encounter for closed fracture Status: Acute Assessment and Plan: Fall at nursing facility resulting in left hip fracture Hip/Pelvis xray showed subcapital fracture of the left femoral neck Patient is postoperative day #7 left hip pinning Appreciate orthopedic surgery consultation and management Supportive care. Analgesics available as needed Continue PT/OT if patient able to participate Fall precautions implemented (2) Dementia: Qualifiers: Dementia type: unspecified type Dementia severity: moderate Dementia behavioral or psychological symptom: with agitation Qualified Code(s): F03.B11 - Unspecified dementia, moderate, with agitation Code(s): F03.90 - Unspecified dementia, unspecified severity, without behavioral disturbance, psychotic disturbance, mood disturbance, and anxiety Status: Acute Assessment and Plan: Patient with declining mental status. Little to no oral intake. Patient has been agitated and restless, removing IV access and lines. Patient is now comfortable today but with overall decline in cognitive status. His daughter, Audrey requests hospice meeting today. (3) HERNANDEZ (acute kidney injury): Code(s): N17.9 - Acute kidney failure, unspecified Status: Acute Assessment and Plan: Creatinine up to 1.7 today. Likely pre renal due to lack of intake. Patient is on gentle IV fluids but not tolerating IV well. Continue to monitor renal function (4) Hypertension: Code(s): I10 - Essential (primary) hypertension Status: Acute Assessment and Plan: Blood pressures are stable. Continue home metoprolol. Lisinopril on hold due to HERNANDEZ. Monitor BP trends (5) Fall: Code(s): W19.XXXA - Unspecified fall, initial encounter Status: Acute Assessment and Plan: Ground level fall x 2 at the [facility]. Head CT negative for any intracranial findings. Patient unfortunately sustained hip fracture secondary to fall. Fall precautions implemented. (6) Diabetes: Code(s): E11.9 - Type 2 diabetes mellitus without complications Status: Acute Assessment and Plan: Random glucose elevated on presentation. A1c is 9.6. PMH does not indicate history of diabetes and patient is not on insulin or oral hypoglycemics. Continue Accu-Cheks, sliding scale insulin, hypoglycemic protocol. Low dose lantus initiated due to elevated glucose, however now on hold due to decreased PO intake. Continue to monitor glucose trends and adjust insulin as needed (7) Anemia: Code(s): D64.9 - Anemia, unspecified Status: Acute Assessment and Plan: Hemoglobin 7.7 preoperatively. Received 2 units pRBC per orthopedic surgery recommendations. Iron panel consistent with anemia of chronic disease. H&H remaining stable postoperatively. Continue to monitor. (8) Abnormal urinalysis: Code(s): R82.90 - Unspecified abnormal findings in urine Status: Acute Assessment and Plan: UA repeated on 04/15 in light of elevated WBC, noted to have brown turbid urine with >75 RBC and 10-15 WBC. Urine culture negative. Blood likely due to trauma from cath. No need for further treatment. Subjective Date/time seen: 04/20/22 15:18 Interval history: Date of service: 04/20/2022 Devan Bar is a 76 year old male with a history of CAD, lung cancer, hyperlipidemia, hypertension, dementia, chronic anemia, and BPH who is seen in follow up for left hip fracture s/p left hip pinning on 04/13/22. Mychal
[2022-04-20 15:58] VITALS: BP 94/40; PULSE 79; RESP 20; TEMP 36.5; O2SAT 95
[2022-04-20 17:09] LABS: Glucose Point of Care 163 mg/dl (65-105)
--- NOTE | 2022-04-20 18:17 | PC.NURSE ---
Patient's family decided hospice, pt will be returning to [facility] for hospice care tomorrow 04/21/22. Spoke with BENJAMIN Ward - salo to non-administer meds and make comfortable here for the remainder of stay. Gómez will be inserted at longterm. AM labs cancelled. Comfort meds entered if needed. Pt resting comfortably at this time
[2022-04-20 20:04] VITALS: BP 135/86; PULSE 77; RESP 16; TEMP 36.5; O2SAT 95
[2022-04-20 21:34] LABS: Glucose Point of Care 156 mg/dl (65-105)
[2022-04-21 04:04] VITALS: BP 87/53; PULSE 45; RESP 18; TEMP 36.2; O2SAT 86
[2022-04-21 08:29] LABS: Glucose Point of Care 188 mg/dl (65-105)
--- NOTE | 2022-04-21 10:07 | PM.DS ---
DS: Admitting Diagnosis Discharge Date 04/21/2022 Admitting Diagnosis closed subcapital fracture of left femoral neck dementia HERNANDEZ hypertension diabetes mellitus chronic anemia accidental fall electrolyte derangement DS: Discharge Diagnosis Discharge Diagnosis (1) Failure to thrive: Status: Acute Assessment and Plan: as evidenced by patient not eating, not participating in therapy and not interacting. He is overtly confused vital signs are declining (2) Closed subcapital fracture of neck of left femur: Qualifiers: Encounter type: subsequent encounter Fracture healing: with routine healing Qualified Code(s): S72.012D - Unspecified intracapsular fracture of left femur, subsequent encounter for closed fracture with routine healing Code(s): S72.012A - Unspecified intracapsular fracture of left femur, initial encounter for closed fracture Status: Acute Assessment and Plan: Fall at nursing facility resulting in left hip fracture Hip/Pelvis xray showed subcapital fracture of the left femoral neck Patient is postoperative day #7 left hip pinning Appreciate orthopedic surgery consultation and management Supportive care. Analgesics available as needed Continue PT/OT if patient able to participate Fall precautions implemented (3) Dementia: Qualifiers: Dementia type: unspecified type Dementia severity: moderate Dementia behavioral or psychological symptom: with agitation Qualified Code(s): F03.B11 - Unspecified dementia, moderate, with agitation Code(s): F03.90 - Unspecified dementia, unspecified severity, without behavioral disturbance, psychotic disturbance, mood disturbance, and anxiety Status: Acute Assessment and Plan: Patient with declining mental status. Little to no oral intake. Patient has been agitated and restless, removing IV access and lines. Patient is now comfortable today but with overall decline in cognitive status. His daughter, Audrey requests hospice meeting today. (4) HERNANDEZ (acute kidney injury): Code(s): N17.9 - Acute kidney failure, unspecified Status: Acute Assessment and Plan: Creatinine up to 1.7 today. Likely pre renal due to lack of intake. Patient is on gentle IV fluids but not tolerating IV well. Continue to monitor renal function (5) Hypertension: Code(s): I10 - Essential (primary) hypertension Status: Acute Assessment and Plan: Blood pressures are stable. Continue home metoprolol. Lisinopril on hold due to HERNANDEZ. Monitor BP trends (6) Fall: Code(s): W19.XXXA - Unspecified fall, initial encounter Status: Acute Assessment and Plan: Ground level fall x [address] [facility]. Head CT negative for any intracranial findings. Patient unfortunately sustained hip fracture secondary to fall. Fall precautions implemented. (7) Diabetes: Code(s): E11.9 - Type 2 diabetes mellitus without complications Status: Acute Assessment and Plan: Random glucose elevated on presentation. A1c is 9.6. PMH does not indicate history of diabetes and patient is not on insulin or oral hypoglycemics. Continue Accu-Cheks, sliding scale insulin, hypoglycemic protocol. Low dose lantus initiated due to elevated glucose, however now on hold due to decreased PO intake. Continue to monitor glucose trends and adjust insulin as needed (8) Anemia: Code(s): D64.9 - Anemia, unspecified Status: Chronic Assessment and Plan: chronic in nature, stable (9) Abnormal urinalysis: Code(s): R82.90 - Unspecified abnormal findings in urine Status: Acute Assessment and Plan: urine culture negative DS: Summary Hospital Course Reason for hospitalization: hip fracture Hospital Course: this 76-year-old male patient Whose primary language is Polish, and has significant past medical history of d
[2022-04-21 12:06] LABS: Glucose Point of Care 178 mg/dl (65-105)
== END 2022-04-21 12:43 | DRG 481 ==
LOC: ANHED 23:04 → ANH2MED 23:06
PROVIDERS: Internal Medicine; Nurse Practitioner; Orthopaedic Surgery; Physician Assistant; Admitting Provider Internal Medicine; Emergency Provider General Practice; PCP Nurse Practitioner Family; Visit Provider Nurse Practitioner Adult Health
PROC: 0QS734Z Reposition Left Upper Femur with Internal Fixation Device, Percutaneous Approach (ICD-10-PCS; principal; 2022-04-13 08:00)
DX: S72.012A Unspecified intracapsular fracture of left femur, initial encounter for closed fracture (principal); C34.91 Malignant neoplasm of unspecified part of right bronchus or lung; N17.9 Acute kidney failure, unspecified; I25.10 Atherosclerotic heart disease of native coronary artery without angina pectoris; I10 Essential (primary) hypertension; E87.6 Hypokalemia; E86.0 Dehydration; E11.9 Type 2 diabetes mellitus without complications; E78.5 Hyperlipidemia, unspecified; D72.829 Elevated white blood cell count, unspecified; D64.9 Anemia, unspecified; N40.0 Benign prostatic hyperplasia without lower urinary tract symptoms; M16.9 Osteoarthritis of hip, unspecified; R82.90 Unspecified abnormal findings in urine; R62.7 Adult failure to thrive; W19.XXXA Unspecified fall, initial encounter; F03.90 Unspecified dementia, unspecified severity, without behavioral disturbance, psychotic disturbance, mood disturbance, and anxiety; Z68.22 Body mass index [BMI] 22.0-22.9, adult; Z79.82 Long term (current) use of aspirin; Z91.81 History of falling; Z87.891 Personal history of nicotine dependence; Z95.1 Presence of aortocoronary bypass graft; Z51.5 Encounter for palliative care
CPT/HCPCS: 36415; 36430; 36600; 51702; 70450; 71045; 72125; 73502; 73560; 80047; 80048; 80053; 81001; 82375; 82607; 82728; 82746; 82805; 82948; 83036; 83050; 83540; 83550; 83735; 84443; 84466; 85025; 85027; 85610; 85730; 86850; 86900; 86901; 86920; 87086; 93005; 93306; 94640; 96365; 96367; 96375; 97110; 97116; 97162; 97165; 97530; 97535; 99199; 99285; A9270; C1713; C1769; J0131; J0690; J0696; J1644; J1652; J1815; J1940; J2060; J2270; J2370; J2405; J2704; J3010; J3475; J3480; J7030; J7050; J7070; J7120; P9016